=== PATIENT | female | born 1965 | race Caucasian/White ===

== ENCOUNTER 2019-11-06 16:30 | Inpatient (IN) | payer OTHER ==
[~2019-11-06] VITALS: Ht 172.7 cm; Wt 98.6 kg
--- NOTE | 2019-11-06 17:30 | NUR ---
BIB C/O SOB FOR 2 DAYS SEEN BY TODAY 02 SAT AT 88% ON RA. PT AAOX4, PLACED ON SANIPRACTIC PHYSICIAN. PLACED ON 6L OF O2, SAT 95%. DENIES CP, DIZZINESS, N/V/D. PT SEEN & EVAL'D BY DR. CABALLERO. WILL CONT TO MONITOR.
[2019-11-06 17:36] LABS: BASOPHILS # (AUTO) 0.1 /CMM (0.0-0.2); BASOPHILS % (AUTO) 0.5 % (0.0-2.0); EOSINOPHILS % (AUTO) 0.9 % (0.0-6.0); HEMATOCRIT 25 % (33-45); HEMOGLOBIN 7.6 g/dL (11.5-14.8); LYMPHOCYTES # (AUTO) 1.3 /CMM (0.8-4.8); LYMPHOCYTES % (AUTO) 10.5 % (20.0-44.0); MEAN CORPUSCULAR HGB CONC 30 g/dl (31.0-36.0); MEAN CORPUSCULAR VOLUME 88 fL (82-100); MONOCYTES # (AUTO) 1.2 /CMM (0.1-1.30); MONOCYTES % (AUTO) 9.8 % (2.0-12.0); NEUTROPHILS # (AUTO) 9.9 /CMM (1.8-8.9); NEUTROPHILS % (AUTO) 78.3 % (43.0-81.0); PLATELET COUNT (AUTO) 261 /CMM (150-450); RED BLOOD CELL COUNT(AUTO) 2.87 MIL/uL (4.0-5.2); WHITE BLOOD COUNT (AUTO) 12.7 K/uL (4.3-11.0)
[2019-11-06 17:45] LABS: CARBON DIOXIDE 30 mmol/L (21-32); CHLORIDE 100 mmol/L (98-107); CREATININE 0.8 mg/dL (0.6-1.3); GLUCOSE 133 mg/dL (74-106); POTASSIUM 3.5 mmol/L (3.5-5.1); SODIUM SERUM 138 mmol/L (136-145); UREA NITROGEN, BLOOD 12 mg/dL (7-18)
[2019-11-06 17:46] LABS: CALCIUM, SERUM 8.3 mg/dL (8.5-10.1)
[2019-11-06 17:57] LABS: ALANINE AMINOTRANSFERASE 48 U/L (12-78); ALBUMIN 2.6 g/dL (3.4-5.0); ALKALINE PHOSPHATASE 137 U/L (46-116); ASPARTATE AMINOTRANSFERASE 55 U/L (15-37); B-TYPE NATRIURETIC PEPTIDE 1559 PG/ML (0-125); BILIRUBIN,DIRECT 1.3 mg/dL (0.0-0.2); BILIRUBIN,TOTAL 2.7 mg/dL (0.2-1.0); TOTAL PROTEIN, SERUM 6.4 g/dL (6.4-8.2)
[2019-11-06] MEDS ORDERED: IOHEXOL-350 100 ML VIAL IV ONE (17:58)
[2019-11-06] MEDS ORDERED: IV NS 0.9% 250 ML IV ONE (17:58)
[2019-11-06 18:13] LABS: CREATINE KINASE, TOTAL 79 U/L (26-192); FERRITIN 45 ng/mL (8-388)
[2019-11-06 18:14] LABS: LIPASE 287 U/L (73-393)
[2019-11-06 18:15] LABS: ALCOHOL, BLOOD < 3 mg/dL (0-0)
[2019-11-06] MEDS ORDERED: PRED10TA PO (18:36)
[2019-11-06] MEDS ORDERED: FURO20TA4 PO (18:36)
[2019-11-06] MEDS ORDERED: FLUT1DIS5 IH (18:36)
[2019-11-06] MEDS ORDERED: ALBU8.5H8 IH (18:36)
[2019-11-06] MEDS ORDERED: POTA20TA83 PO (18:36)
[2019-11-06] MEDS ORDERED: ALBU2.5V38 IH (18:36)
[2019-11-06] MEDS ORDERED: IPRA0.2S9 IH (18:37)
[2019-11-06 18:55] LABS: ABG BASE EXCESS 2.4 mmol/L; ABG OXYGEN SATURATION 89.9 % (92.0-98.5); ABG PCO2 40.1 mmHg (35.0-45.0); ABG PH 7.441 (7.350-7.450); ABG PO2 62.9 mmHg (75.0-100.0); AaDO2 176.2 mmHg; COHb 1.1 % (0.5-1.5); MetHb 0.7 % (0.0-1.5); O2Hb 88.3 % (94.0-97.0); SITE, ABG Left Radial
[2019-11-06 18:58] LABS: D-DIMER 9.04 mg/L(FEU (0.17-0.50)
[2019-11-06 19:12] LABS: C-REACTIVE PROTEIN 3.1 mg/dL (0.0-0.9)
[2019-11-06] MEDS ORDERED: VANCOMYCIN 1 GM in IV D5W 250 ML IV ONE (20:00)
[2019-11-06] MEDS ORDERED: MEROPENEM 1,000 MG in IV NS 0.9% 100 ML IV ONE (20:00)
--- NOTE | 2019-11-06 20:00 | NUR ---
PT STABLE, DENIES CP, SOB, DIZZINESS, N/V @ THIS TIME. PT STS " I FEEL MUCH BETTER ". WILL CONT TO MONITOR.
--- NOTE | 2019-11-06 20:24 | NUR ---
PANEL PAGED FOR JACQUES
--- NOTE | 2019-11-06 20:45 | NUR ---
ER MD SPOKE TO JOSE ANGEL REGARDING PT ADMISSION.
--- NOTE | 2019-11-06 21:01 | NUR ---
REPORT CALLED TO [facility]. WILL TRANSPORT PT VIAL ACLS PROTOCOL.
--- NOTE | 2019-11-06 21:25 | NUR ---
SED SPECIAL EDUCATION TEACHER NOTES RECEIVED AND ADMIT A 54 Y/O FEMALE A/O X4 ABLE TO MAKE NEEDS KNOWN ,AMBULATORY ,ON O2 AT 2LITERS VIA NC SATING 92%,WITH ADMITTING DX OF PNA ,R/O COVID ,ANASARCA,LIVER CIRRHOSIS.NO SOB NO DISTRESS NOTED BUT NOTED LUNG SOUND WHEEZING ,V/S STABLE AFEBRILE ,ALL NEEDS ATTENDED TOO ,HEAD TO TOE SKIN ASSESSMENT DONE , NOTED WITH NO SKIN ISSUE SKIN INTACT ,NOTED WITH BILATERAL FEET EDEMA .ON TELE MONITOR SR 70S , DUE MEDS GIVEN ORDERED.KEPT PTS CLEAN DRY AND COMFORTABLE.PTS IS PEDING COVID 19 ,PRECAUTIONARY MEASURES OBSERVE AT ALL TIMES.
[2019-11-06] MEDS ORDERED: ALBUTEROL FS 2.5 MG/3 ML VIAL.NEB IH PRN (21:30)
[2019-11-06] MEDS ORDERED: ALBUTEROL SULFATE INH 18 GM HFA.AER.AD IH PRN (21:30)
[2019-11-06] MEDS ORDERED: ZOLPIDEM TARTRATE 5 MG TABLET PO PRN (21:30)
[2019-11-06] MEDS ORDERED: ONDANSETRON HCL/PF 4 MG/2 ML VIAL IVP PRN (21:30)
[2019-11-06] MEDS ORDERED: FLUTICASONE/SALMETEROL 1 DISK IH SCH (21:30)
[2019-11-06] MEDS ORDERED: ACETAMINOPHEN 325 MG TABLET PO PRN (21:30)
[2019-11-06] MEDS ORDERED: IPRATROPIUM NEB FS 0.5 MG/2.5 ML AMPUL.NEB IH PRN (21:30)
--- NOTE | 2019-11-06 21:30 | NUR ---
STARS COORDINATOR NOTES ADVAIR DOSE FOR 2130 HRS NOT GIVEN D/T UNAVAILABILITY TECHNICAL TRAINER MADE AWARE.
[2019-11-06 21:54] LABS: IRON, SERUM 12 ug/dl (50-175); TOTAL IRON BINDING CAPACITY 242 ug/dl (250-450)
[2019-11-06 22:20] VITALS: BP_SYST 105; BP_SYST 128; BP_DIAS 51; BP_DIAS 62
[2019-11-06] MEDS: ALBUTEROL SULFATE 8 GM HFA.AER.AD IH PRN (23:38)
[2019-11-07] VITALS: BP 105/51
[2019-11-07 04:00] VITALS: BP 105/65
[2019-11-07] MEDS ORDERED: MEROPENEM 500 MG VIAL IV ONE (04:53)
[2019-11-07] MEDS ORDERED: MEROPENEM 500 MG in IV NS 0.9% 50 ML IV SCH (05:00)
--- NOTE | 2019-11-07 05:15 | NUR ---
telephone clerk telegraph office notes pts remains in bed 0n o2 at 2 liters via nc sating 94% no sob no distress noted .all due meds given as ordered .no ase noted, will endorse to rn day shift for continuity of care.
[2019-11-07] MEDS ORDERED: FEE PK DOSING 1 MIN EA MC ONE (07:29)
[2019-11-07 07:54] LABS: BASOPHILS % (AUTO) 0.3 % (0.0-2.0); EOSINOPHILS % (AUTO) 2.2 % (0.0-6.0); HEMATOCRIT 25 % (33-45); HEMOGLOBIN 7.5 g/dL (11.5-14.8); LYMPHOCYTES # (AUTO) 1.8 /CMM (0.8-4.8); LYMPHOCYTES % (AUTO) 14.2 % (20.0-44.0); MEAN CORPUSCULAR HGB CONC 30 g/dl (31.0-36.0); MEAN CORPUSCULAR VOLUME 87 fL (82-100); MONOCYTES # (AUTO) 1.5 /CMM (0.1-1.30); MONOCYTES % (AUTO) 11.5 % (2.0-12.0); NEUTROPHILS # (AUTO) 9.2 /CMM (1.8-8.9); NEUTROPHILS % (AUTO) 71.8 % (43.0-81.0); PLATELET COUNT (AUTO) 197 /CMM (150-450); RED BLOOD CELL COUNT(AUTO) 2.89 MIL/uL (4.0-5.2); WHITE BLOOD COUNT (AUTO) 12.8 K/uL (4.3-11.0)
[2019-11-07 08:00] VITALS: BP 121/66
[2019-11-07] MEDS ORDERED: VANCOMYCIN HCL 1.25 GM in IV D5W 250 ML IV ONE (08:00)
--- NOTE | 2019-11-07 08:00 | NUR ---
NUCLEAR MEDICINE TECHNICIAN OPENING NOTES RECEIVED PT IN BED. A/A/O X4, PT IS ON TELE MONITOR SHOWING HR 80S SR, PT IS ON 2 L O2 VIA NC SATURATION 85%PT HAS SOB, CATCHING FOR BREATH, ELEVATED HOB, ADJUST O2 TO 5 LITER AND PT IS SATING 95%. PT IS ON ISOLATION TO R/O COVID 19. IV IS ON LA, PT HAS TKO 5ML/H, IV PATENT, DRESSING CLEAN AND DRY. PT STATES NO PAIN AT THE MOMENT. SAFETY MEASURES IMPLEMENTSED BED AT LOWEST POSITION, LOCKED, ALARM ON, SIDE RAILS UP X2, CALL LIGHT IN REACH. WILL CONTINUE TO MONITOR.
[2019-11-07 08:06] LABS: ALBUMIN 2.4 g/dL (3.4-5.0); BILIRUBIN,TOTAL 2.8 mg/dL (0.2-1.0); CREATININE 0.6 mg/dL (0.6-1.3); POTASSIUM 5.3 mmol/L (3.5-5.1); TOTAL PROTEIN, SERUM 6.3 g/dL (6.4-8.2)
[2019-11-07] MEDS: VANCOMYCIN HCL 1.25 GM in IV D5W 250 ML IV SCH ×2 (08:09→20:53)
[2019-11-07] MEDS ORDERED: POTASSIUM CHLORIDE 20 MEQ TAB.PRT.SR PO SCH (09:00)
[2019-11-07] MEDS ORDERED: predniSONE 10 MG TABLET PO SCH (09:00)
[2019-11-07] MEDS ORDERED: FUROSEMIDE 20 MG TABLET PO SCH (09:00)
--- NOTE | 2019-11-07 10:00 | NUR ---
RN NOTES SPOKE TO DR STEVENSON REGARDING PT'S CONDITION. MD MADE AWARE OF PT'S COMPLAINS OF SOB ," FEELING MUCH WORST THAN YESTERDAY". MD ACKNOWLEDGED INFORMATION .
[2019-11-07] MEDS: ALBUTEROL SULFATE 8 GM HFA.AER.AD IH PRN (10:15)
[2019-11-07] MEDS: FLUTICASONE/VILANTEROL 1 EACH BLST.W.DEV IH SCH (10:16)
[2019-11-07] MEDS ORDERED: ENOXAPARIN SODIUM 40 MG/0.4 ML DISP.SYRIN SQ SCH (10:30)
[2019-11-07] MEDS ORDERED: HYDROXYCHLOROQUINE 200 MG TABLET PO SCH (10:30)
[2019-11-07] MEDS ORDERED: ENOXAPARIN SODIUM 100 MG/ML DISP.SYRIN SQ SCH (11:00)
--- NOTE | 2019-11-07 11:08 | NUR ---
RN NOTE: ATROVENT ORDER DISCONTINUED PER DR. AGAPITO MUNGUIA.
[2019-11-07] MEDS ORDERED: ENOXAPARIN SODIUM 60 MG/0.6 ML DISP.SYRIN SQ ONE (11:30)
[2019-11-07 11:42] LABS: MAGNESIUM 2.1 mg/dL (1.8-2.4); PHOSPHORUS 2.9 mg/dL (2.5-4.9)
[2019-11-07] MEDS: methylPREDNISolone SOD SUCC 40 MG/ML VIAL IV SCH (11:42)
[2019-11-07] MEDS: ZINC SULFATE 220 MG CAPSULE PO SCH (11:42)
[2019-11-07] MEDS: ASCORBIC ACID 500 MG TABLET PO SCH (11:42)
[2019-11-07] MEDS: HYDROXYCHLOROQUINE 200 MG TABLET PO SCH ×2 (11:43→20:54)
[2019-11-07 11:52] LABS: C-REACTIVE PROTEIN 3.3 mg/dL (0.0-0.9); THYROID STIMULATING HORMONE 2.139 uIU/mL (0.358-3.74)
[2019-11-07 12:00] VITALS: BP 110/51
[2019-11-07] MEDS: MEROPENEM 1 G in IV NS 0.9% 100 ML IV SCH ×2 (13:16→22:08)
[2019-11-07] MEDS: SOD FERRIC GLUC 125 MG in IV NS 0.9% 100 ML IV SCH (14:11)
[2019-11-07 16:00] VITALS: BP 114/63
--- NOTE | 2019-11-07 18:00 | NUR ---
RN CLOSING NOTES PT IS RESTING IN THE BED. NO S/S OF DISTRESS PRESENT, PT HAS UNLABORED BREATHING, ON 5 L O2 VIA NC SATING 95.VS WNL NO ACUTE CHANGE NOTED FOR REMAINDER OF THE SHIFT.SAFETY MEASURES IMPLEMENTED. CALL LIGHT WITHIN REACH, BED AT LOWEST POSITION,SIDE RAILES X2 UP. WILL ENDORSE TO INCOMING SHIFT FOR CONTINUITY OF CARE.
[2019-11-07 20:00] VITALS: BP 124/68
[2019-11-07] MEDS ORDERED: SODIUM POLYSTYRENE SULFONATE 15 G/60 ML BOTTLE PO ONE (20:00)
--- NOTE | 2019-11-07 20:00 | NUR ---
FOILING MACHINE ADJUSTER NOTES RECEIVED IN BED AWAKE AND COMFORTABLE . A/O X4 ABLE TO MAKE NEEDS KNOWN ,AMBULATORY ,ON O2 AT 5 LITERS VIA NC SATING 94%.NO SOB NO DISTRESS NOTED BUT NOTED LUNG SOUND WHEEZING ,V/S STABLE AFEBRILE. ON LEFT HAND g22 PATENT AND INTACT ,ALL NEEDS ATTENDED TOO , NOTED WITH NO SKIN ISSUE SKIN INTACT ,NOTED WITH BILATERAL FET OFFLOADED TO PILLOW .ON TELE MONITOR SR 90S , DUE MEDS GIVEN ORDERED.PTS ON PLAQUENIL NO ASE NOTED .KEPT PTS CLEAN DRY AND COMFORTABLE.PTS IS PEDING COVID 19 ,PRECAUTIONARY MEASURES OBSERVE AT ALL TIMES.KAYEXALATE 30 GRAMS GIVEN VIA PO ORDERED FOR ELEVATED POTASSIUM LEVEL.WILL CONTINUE TO MONITOR PTS.
[2019-11-07] MEDS: ENOXAPARIN SODIUM 100 MG/ML DISP.SYRIN SQ SCH (20:55)
[2019-11-08] VITALS (7 sets, daily range): BP systolic 110–128; BP diastolic 54–81
[2019-11-08] MEDS: MEROPENEM 1 G in IV NS 0.9% 100 ML IV SCH ×3 (04:10→21:21)
--- NOTE | 2019-11-08 06:10 | NUR ---
telegraph inspector notes pts remain in bed awake and responsive had 3 episode of bowel moment small amt , v/as stable pts remains on 5liters of 02 via nc sating 94 % all due meds given as ordered all needs attended too .call light within reach will endorse to rn day shift for continuity of care .endorse to collect stool specimen.
--- NOTE | 2019-11-08 07:01 | NUR ---
television specialist notes stool ob collected and sent to lab pls follow up result.
--- NOTE | 2019-11-08 07:25 | NUR ---
MANAGEMENT SME OPENING NOTE Received patient asleep in bed on NC 5L. Mild increased effort in breathing noted. O2 sat at 92%. Informed patient to do breathing exercises. Patient is AO x4. Sinus rhythm. Patient has R Hand and L hand preipheral IV. Safety measures reinforced. Call light within reach. Bed locked and on lowest position. Will cont to monitor.
[2019-11-08 07:42] LABS: BASOPHILS # (AUTO) 0.1 /CMM (0.0-0.2); BASOPHILS % (AUTO) 0.7 % (0.0-2.0); EOSINOPHILS % (AUTO) 0.1 % (0.0-6.0); HEMATOCRIT 24 % (33-45); HEMOGLOBIN 7.4 g/dL (11.5-14.8); LYMPHOCYTES # (AUTO) 0.9 /CMM (0.8-4.8); LYMPHOCYTES % (AUTO) 7.7 % (20.0-44.0); MEAN CORPUSCULAR HGB CONC 31 g/dl (31.0-36.0); MEAN CORPUSCULAR VOLUME 87 fL (82-100); MONOCYTES % (AUTO) 8.3 % (2.0-12.0); NEUTROPHILS # (AUTO) 10.1 /CMM (1.8-8.9); NEUTROPHILS % (AUTO) 83.2 % (43.0-81.0); PLATELET COUNT (AUTO) 260 /CMM (150-450); RED BLOOD CELL COUNT(AUTO) 2.79 MIL/uL (4.0-5.2); WHITE BLOOD COUNT (AUTO) 12.1 K/uL (4.3-11.0)
[2019-11-08 07:57] LABS: ALBUMIN 2.5 g/dL (3.4-5.0); BILIRUBIN,TOTAL 2.6 mg/dL (0.2-1.0); CALCIUM, SERUM 8.1 mg/dL (8.5-10.1); CREATININE 0.7 mg/dL (0.6-1.3); MAGNESIUM 2.2 mg/dL (1.8-2.4); PHOSPHORUS 2.9 mg/dL (2.5-4.9); POTASSIUM 3.8 mmol/L (3.5-5.1); TOTAL PROTEIN, SERUM 6.3 g/dL (6.4-8.2)
[2019-11-08 08:06] LABS: C-REACTIVE PROTEIN 3.1 mg/dL (0.0-0.9)
[2019-11-08] MEDS: VANCOMYCIN HCL 1.25 GM in IV D5W 250 ML IV SCH (08:29)
[2019-11-08] MEDS: CHOLECALCIFEROL 1,000 UNIT TABLET (VIT D3) PO SCH (08:34)
[2019-11-08] MEDS: methylPREDNISolone SOD SUCC 40 MG/ML VIAL IV SCH (08:34)
[2019-11-08] MEDS: ZINC SULFATE 220 MG CAPSULE PO SCH (08:35)
[2019-11-08] MEDS: HYDROXYCHLOROQUINE 200 MG TABLET PO SCH ×2 (08:35→17:31)
[2019-11-08] MEDS: ASCORBIC ACID 500 MG TABLET PO SCH (08:35)
[2019-11-08] MEDS: ENOXAPARIN SODIUM 100 MG/ML DISP.SYRIN SQ SCH ×2 (08:36→21:34)
[2019-11-08] MEDS: FLUTICASONE/VILANTEROL 1 EACH BLST.W.DEV IH SCH (08:36)
[2019-11-08 08:39] LABS: OCCULT BLOOD STOOL POSITIVE (NEGATIVE)
[2019-11-08 08:46] LABS: ABG BASE EXCESS 5.9 mmol/L; ABG OXYGEN SATURATION 94.9 % (92.0-98.5); ABG PCO2 42.6 mmHg (35.0-45.0); ABG PH 7.468 (7.350-7.450); ABG PO2 77.7 mmHg (75.0-100.0); AaDO2 158.5 mmHg; COHb 1.1 % (0.5-1.5); MetHb 0.9 % (0.0-1.5); SITE, ABG Right Radial; VENT MODE, BG NC 5 L
[2019-11-08 08:47] LABS: D-DIMER 5.68 mg/L(FEU (0.17-0.50)
--- NOTE | 2019-11-08 09:45 | NUR ---
COLLECTIONS REPRESENTATIVE NOTE Gave report to Terese. Patient will be transferred to room 306-1.
--- NOTE | 2019-11-08 10:00 | NUR ---
EBD TEACHER NOTE Patient was transferred via wheelchair with acute care certified nursing assistant along with belongings and IV meds. Tolerated well. Gave report to Terese MADDOX.
--- NOTE | 2019-11-08 11:00 | NUR ---
RECEIVED PT RECEIVED PT FROM MONICA MADDOX. COVID +. PT WAS IN 3 WEST THEN CAME BACK TO [facility]/COVID UNIT, BECAUSE DR. STEVENSON WANTS TO CONTINUE WITH ISOLATION PRECAUTIONS UNTIL COVID IS RULED OUT. NO CARDIAC OR RESPIRATOPRY DISTRESS NOTED. NO COMPLAINTS OF PAIN OR DISCOMFORT AT THIS TIME. NO SOB NOTED. PT IS AFEBRILE WITH TEMP NOTED AT 98.2. PT DOES HAVE DRY COUGH, BUT DENIES ANY BODY OR MUSCLE ACHES. PT BROUGHT BACK TO ROOM 102. IN STABLE CONDITION. ON 4L OF O2 SATURATING AT 96%. WILL CONTINUE TO MONITOR.
--- NOTE | 2019-11-08 11:16 | NUR ---
CAREER COORDINATOR NOTES PT TRANSFERRED BACK DOWN TO RM 102 VIA WHEELCHAIR IN MEDICALLY STABLE CONDITION. ENDORSED TO SOON, CHARGE NURSE. ALL BELONGINGS SENT WITH PT.
--- NOTE | 2019-11-08 12:00 | NUR ---
REPOT TO DR. MAGDY CURRAN CALLED REGARDING PT, NOTIFIED MD THAT PT HAS NOT HAD ANY BOWEL MOVEMENTS THIS SHIFT YET/AM. HOWEVER, ALSO INFORMED MD THAT PTS STOOL FOR OB LAB RESULTS CAME BACK POSITIVE. MD IS AWARE. HOWEVER PER , NOTHING NEEDS TO BE DONE FOR NOW STINCE PT'S H AND H ARE STABLE AND IF NOT OVERT ACTIVE GI BLEED. ASKED MD IF NEED TO ODER PROTONIX, PER , ITS OKAY. NO NEED FOR NOW. PER DR. CURRAN, OKAY TO CONTINUE TO LET THE PT EAT, CONTINUE WITH IV IRON INFUSION, HOLD ANTICOAGULANTS AND IF NEEDED HE WILL THINK ABOUT TRANSFUSING PRBC TO KEEP HGB >7. WILL CONTINUE TO MONITOR PT.
[2019-11-08] MEDS: SOD FERRIC GLUC 125 MG in IV NS 0.9% 100 ML IV SCH (14:16)
--- NOTE | 2019-11-08 18:08 | NUR ---
TLE RN CLOSING NOTES PT IN BED, ASLEEP BUT AROUSABLE. PT AOX4. PLEASANT AND COOPERATIVE. NO CARDIAC OR RESPIRATORY DISTRESS NOTED. NO COMPLAINTS OF PAIN OR DISCOMFORT. PT AFEBRILE THROUGHOUT THE SHIFT. NO SOB NOTED. BREATHING EVEN AND UNLABORED. SATURATING WELL AT 98% ON 4L OF O2 VIA NASAL CANULLA. ON TELE OFFSET PLATE MAKER SHOWING NSR WITH HR OF 80S. PT IS AMBULATORY, ABLE TO AMBULATE TO THE BATHROOM WITH STEADY GAIT. IV ACCESS NOTED ON L HAND G20. INTACT AND PATENT AND FLUSHING WELL. NO S/S OF INFECTION OR INFILTRATION NOTED. PT WAS SWABBED THIS AM FOR COVID TESTING. STILL PENDING FOR RESULTS. SAFETY PRECAUTIONS IN PLACE. BED LOCKED AND IN LOW POSITION. SIDE RAILS UP X2. CALL LIGHT WITHIN REACH. WILL ENDORSE TO NEXT SHIFT.
[2019-11-09] VITALS: BP 127/68
[2019-11-09 04:00] VITALS: BP 127/68
[2019-11-09] MEDS: MEROPENEM 1 G in IV NS 0.9% 100 ML IV SCH ×3 (04:40→20:21)
--- NOTE | 2019-11-09 06:17 | NUR ---
rn notes resting comfortably in bed, easily arousable. alert and oriented. verbally able to communicate needs. no complaint of pain or discomfort. on 4 lpm 02 via nasal cannula, well tolerated. no significant changed of condition. needs attended. kept clean and dry. will endorse to next shift for continuity of care
[2019-11-09 08:00] VITALS: BP 113/65
[2019-11-09 08:02] LABS: BASOPHILS # (AUTO) 0.1 /CMM (0.0-0.2); BASOPHILS % (AUTO) 0.6 % (0.0-2.0); HEMATOCRIT 24 % (33-45); HEMOGLOBIN 7.6 g/dL (11.5-14.8); LYMPHOCYTES % (AUTO) 7.2 % (20.0-44.0); MEAN CORPUSCULAR HGB CONC 32 g/dl (31.0-36.0); MEAN CORPUSCULAR VOLUME 87 fL (82-100); MONOCYTES # (AUTO) 1.2 /CMM (0.1-1.30); MONOCYTES % (AUTO) 8.7 % (2.0-12.0); NEUTROPHILS # (AUTO) 11.5 /CMM (1.8-8.9); NEUTROPHILS % (AUTO) 83.5 % (43.0-81.0); PLATELET COUNT (AUTO) 253 /CMM (150-450); RED BLOOD CELL COUNT(AUTO) 2.79 MIL/uL (4.0-5.2); WHITE BLOOD COUNT (AUTO) 13.8 K/uL (4.3-11.0)
--- NOTE | 2019-11-09 08:05 | NUR ---
RN OPENING NOTE Patient is resting in bed, A/O x4, showing no signs of acute distress, saturating 100% on 4L NC. Patient has no complaints of pain at this time. IV line in the left hand #22g is running TKO, right hand #22g is clean and intact. Bed is in lowest position, side rails x3 in upright position call light is within reach, fall safety and aspiration precautions enforced. Will continue with plan of care.
[2019-11-09 08:07] LABS: CREATININE 0.7 mg/dL (0.6-1.3); POTASSIUM 3.4 mmol/L (3.5-5.1)
[2019-11-09] MEDS: FLUTICASONE/VILANTEROL 1 EACH BLST.W.DEV IH SCH (08:20)
[2019-11-09] MEDS: methylPREDNISolone SOD SUCC 40 MG/ML VIAL IV SCH (08:20)
[2019-11-09] MEDS: ZINC SULFATE 220 MG CAPSULE PO SCH (08:21)
[2019-11-09] MEDS: ASCORBIC ACID 500 MG TABLET PO SCH (08:21)
[2019-11-09] MEDS: CHOLECALCIFEROL 1,000 UNIT TABLET (VIT D3) PO SCH (08:21)
[2019-11-09] MEDS: HYDROXYCHLOROQUINE 200 MG TABLET PO SCH ×2 (08:21→16:06)
[2019-11-09] MEDS: ENOXAPARIN SODIUM 100 MG/ML DISP.SYRIN SQ SCH ×2 (08:22→20:21)
[2019-11-09] MEDS ORDERED: POTASSIUM CHLORIDE 20 MEQ TAB.PRT.SR PO SCH (10:00)
--- NOTE | 2019-11-09 11:05 | NUR ---
COVID STATUS STILL PENDING.
[2019-11-09 11:27] LABS: C-REACTIVE PROTEIN 2.2 mg/dL (0.0-0.9)
[2019-11-09 12:00] VITALS: BP_SYST 119; BP_SYST 121; BP_DIAS 56; BP_DIAS 63
--- NOTE | 2019-11-09 12:00 | NUR ---
RN NOTE Patient remains stable, saturating 100% on 4L NC. COVID swab still pending. Will continue to monitor.
[2019-11-09] MEDS: SOD FERRIC GLUC 125 MG in IV NS 0.9% 100 ML IV SCH (14:50)
[2019-11-09 16:00] VITALS: BP_SYST 148; BP_SYST 99; BP_DIAS 60; BP_DIAS 68
--- NOTE | 2019-11-09 17:11 | NUR ---
FF. UP COVID RESULT STILL PENDING PER LAB.
--- NOTE | 2019-11-09 18:17 | NUR ---
RN CLOSING NOTE Patient is resting in bed, A/O x4, showing no signs of acute distress, saturating 100% on 4L NC. Patient has no complaints of pain at this time. IV right hand #22g is clean and intact running TKO. All patient needs met, all due medications given. Bed is in lowest position, side rails x3 in upright position call light is within reach, fall safety and aspiration precautions enforced. Will endorse to night assistant.
[2019-11-09 20:00] VITALS: BP 101/54
--- NOTE | 2019-11-09 20:00 | NUR ---
RN NOTES RECEIVED PT. AWAKE ON BED, A/OX4, AMBULATORY, SR ON TELE MONITOR HR-77, DENIES PAIN, NO SOB, CALL LIGHT WITHIN REACH, [id number], CONTINUE TO MONITOR
[2019-11-10] VITALS: BP 119/65
[2019-11-10 04:00] VITALS: BP 106/55
[2019-11-10] MEDS: MEROPENEM 1 G in IV NS 0.9% 100 ML IV SCH ×2 (04:14→13:29)
[2019-11-10 06:24] LABS: BASOPHILS # (AUTO) 0.2 /CMM (0.0-0.2); BASOPHILS % (AUTO) 1.2 % (0.0-2.0); HEMATOCRIT 26 % (33-45); HEMOGLOBIN 7.9 g/dL (11.5-14.8); LYMPHOCYTES # (AUTO) 0.7 /CMM (0.8-4.8); LYMPHOCYTES % (AUTO) 4.2 % (20.0-44.0); MEAN CORPUSCULAR HGB CONC 31 g/dl (31.0-36.0); MEAN CORPUSCULAR VOLUME 87 fL (82-100); MONOCYTES # (AUTO) 1.3 /CMM (0.1-1.30); MONOCYTES % (AUTO) 7.8 % (2.0-12.0); NEUTROPHILS # (AUTO) 14.5 /CMM (1.8-8.9); NEUTROPHILS % (AUTO) 86.8 % (43.0-81.0); PLATELET COUNT (AUTO) 267 /CMM (150-450); RED BLOOD CELL COUNT(AUTO) 2.97 MIL/uL (4.0-5.2); WHITE BLOOD COUNT (AUTO) 16.7 K/uL (4.3-11.0)
--- NOTE | 2019-11-10 06:37 | NUR ---
RN NOTES AWAKE, DENIES PAIN, NO SOB, MORNING CARE RENDERED, CALL LIGHT WITHIN REACH, SIDERAILSUPX2, PT. NEEDS ATTENDED
[2019-11-10 06:40] LABS: CALCIUM, SERUM 8.5 mg/dL (8.5-10.1); CREATININE 0.8 mg/dL (0.6-1.3); MAGNESIUM 2.4 mg/dL (1.8-2.4); POTASSIUM 3.7 mmol/L (3.5-5.1)
--- NOTE | 2019-11-10 07:10 | NUR ---
RN opening note: Received patient in bed. Awake, alert and oriented x4. Able to make needs known. Tele monitor showing sinus rhythm. Isolation precaution in place to R/O covid-19. IV sites clean, dry, patent and intact. On cont. o2 via NC @4lpm and being tolerated well, saturation >92%. No SOB and not in respiratory distress. No pain reported. Patient is independent with ambulation. Call light in reach. Bed locked, low and at semi-dunham's position. Side rails up x3. Safety ensured and observed. Will continue to monitor.
[2019-11-10 07:23] LABS: D-DIMER 4.42 mg/L(FEU (0.17-0.50)
[2019-11-10 08:00] VITALS: BP 116/72
[2019-11-10] MEDS: FLUTICASONE/VILANTEROL 1 EACH BLST.W.DEV IH SCH (09:00)
[2019-11-10] MEDS: ZINC SULFATE 220 MG CAPSULE PO SCH (09:31)
[2019-11-10] MEDS: methylPREDNISolone SOD SUCC 40 MG/ML VIAL IV SCH (09:31)
[2019-11-10] MEDS: CHOLECALCIFEROL 1,000 UNIT TABLET (VIT D3) PO SCH (09:31)
[2019-11-10] MEDS: HYDROXYCHLOROQUINE 200 MG TABLET PO SCH ×2 (09:31→16:17)
[2019-11-10] MEDS: ASCORBIC ACID 500 MG TABLET PO SCH (09:32)
[2019-11-10] MEDS: ENOXAPARIN SODIUM 100 MG/ML DISP.SYRIN SQ SCH ×2 (10:08→20:38)
[2019-11-10 12:00] VITALS: BP 122/67
[2019-11-10] MEDS: SOD FERRIC GLUC 125 MG in IV NS 0.9% 100 ML IV SCH (14:45)
[2019-11-10 15:28] LABS: C-REACTIVE PROTEIN 2.2 mg/dL (0.0-0.9)
[2019-11-10 16:00] VITALS: BP 115/58
--- NOTE | 2019-11-10 16:00 | NUR ---
RN note: Report given to VARSHA Barrett for LORE.
--- NOTE | 2019-11-10 18:25 | NUR ---
RN CLOSING NOTE PT. IN BED. NO ACUTE DISTRESS NOTED. PT. A&OX4. PT. ON 4L O2 VIA NC, SATURATING WELL AT >92%. PT. ON TELE MONITOR- SR NOTED WITH HR IN 70S. PT. HAS R WRIST IV ACCESS #22, INTACT, PATENT, FLUSHED WELL. PT. SAFETY MAINTAINED (BED LOWERED, BED LOCKED, CALL LIGHT WITHIN REACH). WILL ENDORSE PLAN OF CARE TO ONCOMING NURSE.
--- NOTE | 2019-11-10 19:27 | NUR ---
RN NOTE PT. COMPLAINED ABOUT IV SITE LEAKING. UPON ASSESSMENT, FOUND IV SITE INFILTRATED. PITTING EDEMA +2 NOTED. PAIN NOTED. IV SITE DISCONTINUED. NO INFLAMMATION NOTED. CATHETER WAS INTACT, SITE WAS NOT WARM, NO REDNESS. TRIED TO RESTART IV, BUT PT. REFUSED. RISKS AND BENEFITS OF IV NON-ADMINISTRATION EXPLAINED TO PT. NICHOL ALVAREZ DNP INFORMED OF THE SITUATION. ACKNOWLEDGED INFORMATION. WAS INFORMED TO F/U WITH ELIZABETH BRUCE FOR POSSIBLE CONVERSION OF IV MERREM TO PO MERREM. AWAITING RESPONSE. PT. MONITORED FOR ANY OTHER AEs WITH REGARDS TO INFILTRATION. ENDORSED TO SHOP HAND NURSE FOR CONTINUITY OF CARE.
--- NOTE | 2019-11-10 19:54 | NUR ---
RN NOTE: SPOKE TO ELIZABETH BRUCE ABOUT SITUATION. ACKNOWLEDGED INFORMATION AND ORDERED TO D/C MERREM IV AND START LEVAQUIN PHARMACY TO DOSE. SPOKE TO AFTER HOURS PHARMACIST ABOUT ORDER INPUT AND WAS GUIDED TO PUT LEVAQUIN 750MG PO QDAILY AND PUT PHARMACY TO DOSE IN THE COMMMENT THE ORDER. NOTED AND CARRIED OUT. Addendum: 11/10/19 at 1957 by DIANE PRESCOTT RN PO LEVAQUIN
[2019-11-10 20:00] VITALS: BP 121/76
[2019-11-10] MEDS ORDERED: LEVOFLOXACIN (750 MG) 750 MG TABLET PO ONE (20:00)
[2019-11-10] MEDS: DOXYCYCLINE HYCLATE (100 MG) 100 MG TABLET PO SCH (20:38)
[2019-11-10] MEDS ORDERED: LEVOFLOXACIN (250MG) 250 MG TABLET ONE (21:00)
[2019-11-11] VITALS: BP 101/54
[2019-11-11 04:00] VITALS: BP 104/62
--- NOTE | 2019-11-11 05:55 | NUR ---
rn notes in bed, sleeping comfortably with no distress noted. on 4lpm 02 via nasal cannula tolerating well. no complaint of pain or discomfort. no significant change of condition. waiting for results of covid-19. kept clean and dry. will endorse to next shift for continuity of care
[2019-11-11 07:20] LABS: CALCIUM, SERUM 8.3 mg/dL (8.5-10.1); CREATININE 0.7 mg/dL (0.6-1.3); MAGNESIUM 2.3 mg/dL (1.8-2.4); PHOSPHORUS 3.2 mg/dL (2.5-4.9); POTASSIUM 3.8 mmol/L (3.5-5.1)
--- NOTE | 2019-11-11 07:30 | NUR ---
RN OPENING NOTE: RECEIVED PATIENT IN BED THIS MORNING. PATIENT IS ALERT AND ORIENTED X4, RESPONDS APPROPRIATELY. ON 4L/MIN O2 VIA NC, NO SIGNS OF RESPIRATORY DISTRESS NOTED. NO SIGNS OF ACUTE DISTRESS NOTED. ON TELE MONITOR, SR IN THE 70S. NO IV SITE. SAFETY MEASURES IMPLEMENTED, BED IN LOWEST POSITION, LOCKED, SIDE RAILS UP, CALL LIGHT WITHIN REACH. WILL CONTINUE TO MONITOR PATIENT FOR CHANGES.
[2019-11-11 08:00] VITALS: BP_SYST 109; BP_SYST 112; BP_DIAS 54; BP_DIAS 67
[2019-11-11 08:10] LABS: BASOPHILS # (AUTO) 0.1 /CMM (0.0-0.2); BASOPHILS % (AUTO) 0.4 % (0.0-2.0); HEMATOCRIT 26 % (33-45); HEMOGLOBIN 7.7 g/dL (11.5-14.8); LYMPHOCYTES # (AUTO) 1.2 /CMM (0.8-4.8); LYMPHOCYTES % (AUTO) 8.9 % (20.0-44.0); MEAN CORPUSCULAR HGB CONC 30 g/dl (31.0-36.0); MEAN CORPUSCULAR VOLUME 88 fL (82-100); MONOCYTES # (AUTO) 1.1 /CMM (0.1-1.30); MONOCYTES % (AUTO) 8.3 % (2.0-12.0); NEUTROPHILS # (AUTO) 10.9 /CMM (1.8-8.9); NEUTROPHILS % (AUTO) 82.4 % (43.0-81.0); PLATELET COUNT (AUTO) 209 /CMM (150-450); RED BLOOD CELL COUNT(AUTO) 2.91 MIL/uL (4.0-5.2); WHITE BLOOD COUNT (AUTO) 13.2 K/uL (4.3-11.0)
[2019-11-11] MEDS: ZINC SULFATE 220 MG CAPSULE PO SCH (08:10)
[2019-11-11] MEDS: CHOLECALCIFEROL 1,000 UNIT TABLET (VIT D3) PO SCH (08:10)
[2019-11-11] MEDS: ASCORBIC ACID 500 MG TABLET PO SCH (08:10)
[2019-11-11] MEDS: HYDROXYCHLOROQUINE 200 MG TABLET PO SCH ×2 (08:10→16:47)
[2019-11-11] MEDS: DOXYCYCLINE HYCLATE (100 MG) 100 MG TABLET PO SCH ×2 (08:10→21:22)
[2019-11-11] MEDS: FLUTICASONE/VILANTEROL 1 EACH BLST.W.DEV IH SCH (08:11)
[2019-11-11] MEDS: ENOXAPARIN SODIUM 100 MG/ML DISP.SYRIN SQ SCH (08:13)
[2019-11-11 10:12] LABS: BAND % (MANUAL) 2 % (0.0-5.0); LYMPHOCYTES % (MANUAL) 10 % (16-48); METAMYELOCYTES % 1 % (0-0); MONOCYTES % (MANUAL) 7 % (0-11.0); MYELOCYTES % 1 % (0-0); NEUTROPHILS % (MANUAL) 79 (42-76)
[2019-11-11 12:00] VITALS: BP 110/68
[2019-11-11 16:00] VITALS: BP 115/55
[2019-11-11] MEDS: SOD FERRIC GLUC 125 MG in IV NS 0.9% 100 ML IV SCH (16:28)
--- NOTE | 2019-11-11 18:55 | NUR ---
RN CLOSING NOTE: PATIENT REMAINS IN BED. NO SIGNS OF RESPIRATORY/ ACUTE DISTRESS NOTED. TELE MONITOR SR IN THE 70S WITH OCCASIONAL PVCS. SAFETY MEASURES IMPLEMENTED, BED IN LOWEST POSITION, LOCKED, SIDE RAILS UP X2, CALL LIGHT WITHIN REACH. WILL ENDORSE TO ONCOMING SHIFT RN FOR CONTINUITY OF CARE.
--- NOTE | 2019-11-11 19:10 | NUR ---
MULTICULTURAL MANAGER NOTES RECEIVED PT IN BED AWAKE AND ABLE TO MAKE NEEDS KNOWN. PT A/O X3. RESPIRATIONS EVEN AND UNLABORED WITH NO S/S OF ACUTE DISTRESS OR SOB NOTED. PT NOTED ON 4L/MIN O2 VIA NC. PT ON TELE MONITOR, SR IN THE 70S. PT NOTED WITH ANU MIDLINE PATENT AND INTACT AND SL. NO COMPLAINTS OF PAIN AT THIS TIME. SAFETY MEASURES IN PLACE WITH BED IN LOWEST LOCKED POSITION WITH SIDE RAILS UP X2. CALL LIGHT WITHIN REACH. WILL CONTINUE TO MONITOR.
[2019-11-11 20:00] VITALS: BP 111/57
[2019-11-11] MEDS: LEVOFLOXACIN (250MG) 250 MG TABLET PO SCH (20:24)
[2019-11-12] VITALS: BP 120/63
[2019-11-12 04:00] VITALS: BP 105/57
[2019-11-12 06:57] LABS: BASOPHILS % (AUTO) 0.2 % (0.0-2.0); EOSINOPHILS % (AUTO) 1.5 % (0.0-6.0); HEMATOCRIT 25 % (33-45); HEMOGLOBIN 7.8 g/dL (11.5-14.8); LYMPHOCYTES % (AUTO) 10.2 % (20.0-44.0); MEAN CORPUSCULAR HGB CONC 31 g/dl (31.0-36.0); MEAN CORPUSCULAR VOLUME 88 fL (82-100); NEUTROPHILS # (AUTO) 7.8 /CMM (1.8-8.9); NEUTROPHILS % (AUTO) 78.1 % (43.0-81.0); PLATELET COUNT (AUTO) 193 /CMM (150-450); RED BLOOD CELL COUNT(AUTO) 2.87 MIL/uL (4.0-5.2)
[2019-11-12 07:19] LABS: CALCIUM, SERUM 8.1 mg/dL (8.5-10.1); CREATININE 0.6 mg/dL (0.6-1.3); PHOSPHORUS 3.7 mg/dL (2.5-4.9); POTASSIUM 3.7 mmol/L (3.5-5.1)
--- NOTE | 2019-11-12 07:30 | NUR ---
CORPORATE SECRETARY NOTES PT IN BED, AWAKE, ALERT AND ORIENTED, VERBALLY RESPONSIVE, CALL LIGHT WITHIN REACH, NO COMPLAINT OF PAIN, STATED THAT SHE FEELS BETTER TODAY, NO SHORTNESS OF BREATH, KEPT WARM AND COMFORTABLE IN BED.
--- NOTE | 2019-11-12 07:40 | NUR ---
MILITARY PAY TECHNICIAN NOTES PT IN BED AWAKE AND ABLE TO MAKE NEEDS KNOWN. PT A/O X3. RESPIRATIONS EVEN AND UNLABORED WITH NO S/S OF ACUTE DISTRESS OR SOB NOTED THROUGHOUT SHIFT. PT NOTED ON 4L/MIN O2 VIA NC. PT ON TELE MONITOR, SR. PT NOTED WITH ANU MIDLINE PATENT AND INTACT AND SL. NO COMPLAINTS OF PAIN AT THIS TIME. SAFETY MEASURES IN PLACE WITH BED IN LOWEST LOCKED POSITION WITH SIDE RAILS UP X2. CALL LIGHT WITHIN REACH. WILL ENDORSE TO ONCOMING NURSE FOR LORE.
[2019-11-12 08:00] VITALS: BP 113/53
[2019-11-12] MEDS: FLUTICASONE/VILANTEROL 1 EACH BLST.W.DEV IH SCH (08:30)
[2019-11-12] MEDS: CHOLECALCIFEROL 1,000 UNIT TABLET (VIT D3) PO SCH (08:30)
[2019-11-12] MEDS: ASCORBIC ACID 500 MG TABLET PO SCH (08:30)
[2019-11-12] MEDS: DOXYCYCLINE HYCLATE (100 MG) 100 MG TABLET PO SCH ×2 (08:30→20:05)
[2019-11-12] MEDS: ZINC SULFATE 220 MG CAPSULE PO SCH (08:30)
[2019-11-12 12:00] VITALS: BP 128/60
--- NOTE | 2019-11-12 13:00 | NUR ---
DRUG WORKER NOTES PT IN BED, AWAKE, ALERT, SPEAKING ON HER PHONE, NO COMPLAINT AT THIS TIME, NOT IN PAIN OR DISTRESS, CALL LIGHT KEPT WITHIN REACH.
--- NOTE | 2019-11-12 15:04 | NUR ---
CHARGE MASTER ANALYST NOTES PT SEEN AND EXAMINED BY DR. LUIS, PLAN OF CARE DISCUSSED WITH PT, VERBALIZED UNDERSTANDING.
[2019-11-12 16:00] VITALS: BP 116/55
--- NOTE | 2019-11-12 18:24 | NUR ---
PRECISION FILER HAND NOTES PT IN BED, AWAKE, ALERT AND ORIENTED, DENIES PAIN, NOT IN DISTRESS, WATCHING TV, CALL LIGHT WITHIN REACH, AMBULATES TO THE BATHROOM WITH SLOW AND STEADY GAIT, NEEDS ATTENDED.
--- NOTE | 2019-11-12 19:10 | NUR ---
RN NOTE RECEIVED PT IN BED A/O X 3, DENIES ANY PAIN AT THIS TIME, PT IN NO DISTRESS ON O2 VIA NC 4 L/MIN, ANU MIDLINE PATENT AND INTACT FLUSHING WELL. PT SITTING UP WATCHING TV, SAFETY MEASURE IN PLACE CALL LIGHT WITHIN REACH. WILL CONTINUE TO MONITOR PT.
[2019-11-12 20:00] VITALS: BP 93/81
[2019-11-12] MEDS: LEVOFLOXACIN (250MG) 250 MG TABLET PO SCH (20:06)
--- NOTE | 2019-11-12 23:20 | NUR ---
RN NOTES, SUMMONED TO PATIENT ROOM WITH PRIMARY NURSE DUE TO SMALL BOIL LIKE ON PATIENT LEFT UPPER SHOULDER, CLEAN AND APPLIED PRESSURE TO SITE AND DRESSED WITH KERLIX, DRESSING REINFORCED AND COVER WITH TAPE, PICTURE TAKEN AND IN CHART, NO ADDITIONAL SIGNS AND SYMPTOMS, PATIENT DENIES ANY DIZZINESS OR DISCOMFORT, WILL CONTINUE TO MONITOR CLOSELY.
--- NOTE | 2019-11-12 23:20 | NUR ---
RN NOTE PT STATES, " WHILE I WAS IN THE RESTROOM, I FELT AND HEARD A POP IN MY LEFT SHOULDER. THERE WAS YELLOW, BROWNISH LIQUID DRIPPING DOWN MY ARM. THEN BLOOD STARTED TO COME OUT." PRESSURE DRESSING APPLIED TO LEFT SHOULDER, SMALL BLISTER LIKE OOZING BLOOD. ELEVATED LEFT ARM WITH 2 PILLOWS. PT DOES NOT C/O ANY PAIN TO ARM. PICTURE TAKEN, MOTORCYCLE DESIGNER MADE AWARE
[2019-11-13] VITALS: BP 114/72
[2019-11-13] MEDS ORDERED: GELATIN SPONGE,ABSORBABLE 1 SPONGE SPONGE TP ONE ×3 (00:47→02:06)
--- NOTE | 2019-11-13 01:28 | NUR ---
RN NOTE PT IS STILL HAVING BLEEDING FROM LEFT UPPER ARM SURGIFOAM AND PRESSURE DRESSING SOAKED WITH BLOOD . PT DENIES ANY PAIN TO ARM. DR COLIN PAGED IN REGARDS TO PTS ARM AND BLEEDING, PICTURE SENT [address] COLIN. ASKED ER MD TO BE CALLED TO LOOK AT THE ARM AND MAYBE NEEDS SUTURING OR SITE TO BE CAUTERIZE. 0145 CALLED ER. SPOKE TO THERMOCOUPLE TESTER. THERMOCOUPLE TESTER WILL COME TO LOOK AT ARM. STATES DR'S ARE CURRENTLY BUSY. 0153 THERMOCOUPLE TESTER CAME TO SEE PT, RN CAUTERIZED SITE AND APPLIED 2 SURGIFOAMS. APPLIED NEW PRESSURE DRESSING. PT DENIES ANY PAIN OR DISCOMFORT. WILL CONTINUE TO MONITOR PT. 0232 RN LODGE OFFICER PAGED AWARE OF PT ARM AND ER MD NOT ABLE TO SEE PT AT THIS TIME, WILL F/U WITH ER. 0245- B/P 114/61 HR 75. 02 SAT 96%, PT RESTING COMFORTABLY, ARM ELEVATED WITH 2 PILLOWS, PER NURSING LODGE OFFICER DR. DIXIE BACK NEEDS TO SEE THE PT AND ADDRESS THE ISSUE. 0300. DR COLIN PAGED
[2019-11-13] MEDS ORDERED: SILVER NITRATE APPLICATOR 1 EA BOX ONE (02:06)
--- NOTE | 2019-11-13 02:45 | NUR ---
RN NOTES, MULTIPLE KNIFE EDGE TRIMMER OPERATOR WONG MADE AWARE THAT ER NURSE CAME AND CAUTERIZED SITE W/O SUCCESS, BECAUSE PATIENT CONTINUE BLEEDING AND DRESSING AGAIN NOTED SOAKED, ASKED RN MULTIPLE KNIFE EDGE TRIMMER OPERATOR THAT PER DIXIE CRAWLEY FROM ER CAN DO SUTURES, MULTIPLE KNIFE EDGE TRIMMER OPERATOR AWARE AND WILL F/U WITH MD FOR POSSIBLE SUTURES.
--- NOTE | 2019-11-13 03:00 | NUR ---
RN NOTES, RN SOLDERING MACHINE TENDER REPLIED THAT MD UNABLE TO DO SUTURES AND DIXIE WILL NEED TO TAKE CARE OF THAT, WILL FOLLOW UP WITH DR COLIN.
--- NOTE | 2019-11-13 03:19 | NUR ---
RN NOTE CALLED [facility] TO CONTACT DR. COLIN. WOOD PREPARATION SUPERVISOR AWARE OF CALL MADE.
--- NOTE | 2019-11-13 03:30 | NUR ---
RN NOTE SPOKE TO DR. COLIN. AWARE SHE NEEDS TO SEE THE PT AND POSSIBLY SUTURE THE SITE. AWARE PT IS STILL BLEEDING FROM SITE. DR. COLIN, STATED," I CAN'T SUTURE, I DON'T DO THOSE PROCEDURES, THERE'S NOTHING I CAN DO ON MY END. PLEASE HAVE DR. LANGFORD F/U IN THE MORNING AND DO SUTURING IF STILL BLEEDING." 7580 SPOKE TO WONG NURSING SUPERVISOR TREE TRIMMING AWARE OF SITUATION. AWARE PT IS TO WAIT UNTIL THE AM. PER WONG INFORMATION IS TO BE ENDORSED TO AM RN.
[2019-11-13 04:00] VITALS: BP 116/59
--- NOTE | 2019-11-13 04:00 | NUR ---
RN NOTE APPLIED SAND BAG TO LEFT UPPER ARM. PT DENIES ANY PAIN, DISCOMFORT OR DIZZINESS AT THIS TIME.
[2019-11-13 06:31] LABS: CALCIUM, SERUM 7.8 mg/dL (8.5-10.1); CREATININE 0.7 mg/dL (0.6-1.3); POTASSIUM 4.1 mmol/L (3.5-5.1)
[2019-11-13 06:37] LABS: BASOPHILS # (AUTO) 0.2 /CMM (0.0-0.2); BASOPHILS % (AUTO) 1.6 % (0.0-2.0); EOSINOPHILS % (AUTO) 2.8 % (0.0-6.0); HEMATOCRIT 27 % (33-45); HEMOGLOBIN 8.2 g/dL (11.5-14.8); LYMPHOCYTES % (AUTO) 9.5 % (20.0-44.0); MEAN CORPUSCULAR HGB CONC 31 g/dl (31.0-36.0); MEAN CORPUSCULAR VOLUME 89 fL (82-100); MONOCYTES % (AUTO) 9.4 % (2.0-12.0); NEUTROPHILS # (AUTO) 8.3 /CMM (1.8-8.9); NEUTROPHILS % (AUTO) 76.7 % (43.0-81.0); PLATELET COUNT (AUTO) 165 /CMM (150-450); RED BLOOD CELL COUNT(AUTO) 2.99 MIL/uL (4.0-5.2); WHITE BLOOD COUNT (AUTO) 10.8 K/uL (4.3-11.0)
--- NOTE | 2019-11-13 06:46 | NUR ---
RN CLOSING NOTE PT IN BED A/O X 3, DENIES ANY PAIN TO LEFT ARM., PT IN NO DISTRESS ON O2 VIA NC 4 L/MIN, ANU MIDLINE PATENT AND INTACT. SAFETY MEASURES IN PLACE, CALL LIGHT WITHIN REACH, PT LEFT ARM CURRENTLY ELEVATED , SAND BAG ON LEFT ARM FOR PRESSURE, WOUND CONSULT ORDERED, PIPA RN AWARE. AM RN AWARE TO F/U WITH MD IN THE MORNING. PER DIXIE, CABLE TOWER OPERATOR PRIMITIVO CAN SUTURE IF NEEDED.
[2019-11-13 08:00] VITALS: BP 108/69
[2019-11-13] MEDS: FLUTICASONE/VILANTEROL 1 EACH BLST.W.DEV IH SCH (09:00)
[2019-11-13] MEDS: DOXYCYCLINE HYCLATE (100 MG) 100 MG TABLET PO SCH ×2 (09:00→21:02)
[2019-11-13] MEDS: ASCORBIC ACID 500 MG TABLET PO SCH (09:00)
[2019-11-13] MEDS: CHOLECALCIFEROL 1,000 UNIT TABLET (VIT D3) PO SCH (09:00)
[2019-11-13] MEDS: ZINC SULFATE 220 MG CAPSULE PO SCH (09:00)
--- NOTE | 2019-11-13 09:06 | NUR ---
WOUND CARE CONSULT: PT PRESENTS WITH LEFT SHOULDER WOUND WITH TATTOO NOTED. PT STATES HAS HAD BLEEDING FROM THIS SITE ON AND OFF SINCE LAST NIGHT. FIRM PRESSURE APPLIED FOR 15 MINUTES BUT CONTINUES TO BLEED. PRESSURE DRESSING WAS APPLIED BY AIRPORT SKILLED MAINTENANCE SUPERVISOR. AIRPORT SKILLED MAINTENANCE SUPERVISOR SPOKE WITH Jenn LUIS DNP AND SURGICAL CONSULT CALLED TO DR KOEHLER. PT'S GOWN AND BED CHANGED BY STAFF. WILL SEE PRN. PT IS AMBULATORY TO BATHROOM AND CONTINENT. Addendum: 11/13/19 at 0915 by NBA ANDRE WNDNU Amended: Links added.
[2019-11-13] MEDS ORDERED: LIDOCAINE 1% INJ 50 ML MDV IJ ONE (10:00)
[2019-11-13] MEDS ORDERED: LIDOCAINE 2%-EPI 1:100,000 30 ML VIAL IJ ONE (11:00)
--- NOTE | 2019-11-13 13:30 | NUR ---
NURSING SUP/KAT MADE AWARE PATIENT HAS ORDER TO TRANSFER TO CLEAN FLOOR,AWAITS BED.
--- NOTE | 2019-11-13 13:40 | NUR ---
PATIENT IN BED RESTING. NO SIGNS OR SYMPTOMS OF PAIN, SHORTNESS OF BREATH, OR DISCOMFORT. BED IN LOW POSITION. CALL LIGHT IN REACH. WILL GIVE REPORT TO 3RD FLOOR RN WHEN READY.
--- NOTE | 2019-11-13 14:00 | NUR ---
pt. transferred from [facility]la.now med surg. status.made comfortable in rm.vs taken.
[2019-11-13] MEDS: NEOMY SULF/BACITRAC ZN/POLY 15 GM TUBE TP SCH (14:30)
[2019-11-13 16:00] VITALS: BP 115/50
--- NOTE | 2019-11-13 18:00 | NUR ---
NEOSPORIN OINT. AND DRY DRESSING TO LT. SUTURED SHOULDER AREA.
--- NOTE | 2019-11-13 19:30 | NUR ---
MS RN OPENING NOTES RECEIVED PATIENT FROM MORNING SHIFT, ALERT AND ORIENTED X 3. VERBALLY RESPONSIVE AND ABLE TO FOLLOW DIRECTIONS. BREATHING REGULAR AND UNLABORED ON OXYGEN AT 4L/MIN. LEFT UPPER ARM MIDLINE INTACT AND PATENT FLUSHING WELL WITH NO BLEEDING OR S/S OF INFILTRATION NOTED. DENIES SUICIDAL IDEATION. NO COMPLAINTS OF PAIN/DISCOMFORT REPORTED AT THIS TIME. NO ACTIVE BLEEDING SEEN ON LEFT UPPER ARM WOUND INCISION. BED LOW AND LOCKED ON SEMI FOWLERS POSITION. CALL LIGHT IN REACH. WILL CONTINUE TO MONITOR.
[2019-11-13 20:00] VITALS: BP 105/47
[2019-11-13] MEDS: LEVOFLOXACIN (250MG) 250 MG TABLET PO SCH (20:07)
[2019-11-13 20:48] VITALS: BP 105/47
--- NOTE | 2019-11-14 02:00 | NUR ---
MS RN NOTES INCISION CARE ON LEFT SHOULDER PROVIDED, WOUND DRESSING CHANGED WITH NO BLEEDING OR S/S OF INFECTION NOTED. WILL CONTINUE TO MONITOR.
[2019-11-14] MEDS: MORPHINE SULFATE INJ 2 MG/ML DISP.SYRIN IV PRN ×3 (02:48→13:07)
--- NOTE | 2019-11-14 03:00 | NUR ---
MS RN NOTES COMPLAINED OF 8/10 LEFT SHOULDER PAIN, MORPHINE 2MG GIVEN VIA IV PUSH. NON-PHARMACOLOGICAL INTERVENTIONS PROVIDED. VITAL SIGNS WNL. WILL CONTINUE TO MONITOR.
--- NOTE | 2019-11-14 06:30 | NUR ---
MS RN CLOSING NOTES PATIENT IN BED ALERT AND ORIENTED X 3. AFEBRILE WITH NO S/S OF DISTRESS OBSERVED, LEFT UPPER ARM MIDLINE PATENT AND FLUSHING WELL. NO COMPLAINTS OF PAIN/DISCOMFORT REPORTED AT THIS TIME. BED LOW AND LOCKED ON SEMI FOWLERS POSITION. CALL LIGHT IN REACH. WILL ENDORSE TO MORNING SHIFT FOR LORE.
--- NOTE | 2019-11-14 07:39 | NUR ---
MS/RN CLOSING NOTES PATIENT IN BED ALERT AND ORIENTED X 3. AFEBRILE WITH NO S/S OF DISTRESS OBSERVED, LEFT UPPER ARM MIDLINE PATENT AND FLUSHING WELL. PATIENT COMPLAINTS OF PAIN AT 7/10. BED LOW AND LOCKED ON SEMI FOWLERS POSITION. CALL LIGHT IN REACH. WILL CONTINUE TO MONITOR.
[2019-11-14 07:54] LABS: C-REACTIVE PROTEIN 1.6 mg/dL (0.0-0.9)
[2019-11-14] MEDS: ZINC SULFATE 220 MG CAPSULE PO SCH (08:15)
[2019-11-14] MEDS: ASCORBIC ACID 500 MG TABLET PO SCH (08:16)
[2019-11-14] MEDS: DOXYCYCLINE HYCLATE (100 MG) 100 MG TABLET PO SCH (08:16)
[2019-11-14] MEDS: CHOLECALCIFEROL 1,000 UNIT TABLET (VIT D3) PO SCH (08:16)
--- NOTE | 2019-11-14 08:26 | NUR ---
MS/RN NOTES PATIENT COMPLAINED OF PAIN RATE 8/10 MORPHINE 2MG IV WAS GIVEN, WILL MONITOR CONTINUOUSLY.
[2019-11-14] MEDS: NEOMY SULF/BACITRAC ZN/POLY 15 GM TUBE TP SCH (08:38)
[2019-11-14] MEDS: FLUTICASONE/VILANTEROL 1 EACH BLST.W.DEV IH SCH (08:38)
[2019-11-14] MEDS ORDERED: LEVO500T2 PO (13:15)
[2019-11-14] MEDS ORDERED: HYDR-4384 PO (13:15)
--- NOTE | 2019-11-14 16:15 | NUR ---
MS/RN NOTES PATIENT IS ALERT AND ORIENTED X4. PATIENT IN NO APPARENT RESPIRATORY DISTRESS NOTED. IN ROOM AIR AND SATURATION AT 98%. RESPIRATION REGULAR AND UNLABORED. SEEN AND EXAMINED BY MD WITH ORDERS MADE AND NOTED. PATIENT DISCHARGED AT 1605. PATIENT WAS GIVEN DISCHARGED INSTRUCTIONS AND PATIENT VERBALIZED UNDERSTANDING. THE PATIENT LEFT THE HOSPITAL IN STABLE CONDITION, ACCOMPANIED BY NBA () ON A PA PRIVATE CAR.
== END 2019-11-14 16:05 | disposition home or self-care (01) | DRG 871 ==
LOC: ER 16:30 → TELE1 21:18 → TELE 11-08 09:37 → TELE1 11-08 10:42 → MEDSG1 11-13 12:37 → MED 11-13 14:11
PROVIDERS: ADMIT Nurse Practitioner Acute Care; ATTEND Nurse Practitioner Acute Care
PROC: 0JBF0ZX Excision of Left Upper Arm Subcutaneous Tissue and Fascia, Open Approach, Diagnostic (ICD-10-PCS; principal; 2019-11-13)
PROC: 05HA33Z Insertion of Infusion Device into Left Brachial Vein, Percutaneous Approach (ICD-10-PCS; 2019-11-14)
DX: A41.9 Sepsis, unspecified organism (principal); J18.9 Pneumonia, unspecified organism; J96.01 Acute respiratory failure with hypoxia; K92.2 Gastrointestinal hemorrhage, unspecified; J90 Pleural effusion, not elsewhere classified; R18.8 Other ascites; E44.0 Moderate protein-calorie malnutrition; L02.414 Cutaneous abscess of left upper limb; D68.59 Other primary thrombophilia; D68.9 Coagulation defect, unspecified; D50.9 Iron deficiency anemia, unspecified; K74.60 Unspecified cirrhosis of liver; Z68.33 Body mass index [BMI] 33.0-33.9, adult; J45.909 Unspecified asthma, uncomplicated; E87.5 Hyperkalemia; Z88.0 Allergy status to penicillin; Z85.828 Personal history of other malignant neoplasm of skin; E88.09 Other disorders of plasma-protein metabolism, not elsewhere classified; E66.9 Obesity, unspecified; E80.6 Other disorders of bilirubin metabolism; F17.210 Nicotine dependence, cigarettes, uncomplicated
CPT/HCPCS: 36410; 36415; 36600; 71045-TC; 80048-TC; 80053-TC; 80061-TC; 80076-TC; 80202-TC; 82272-TC; 82550-TC; 82728-TC; 83540-TC; 83605-TC; 83615-TC; 83690-TC; 83735-TC; 83880; 84100-TC; 84443-TC; 84484-TC; 85025-TC; 85378-TC; 85385-TC; 85730-TC; 86140-TC; 87040-TC; 87081-TC; 88305-TC; 93970-TC; A4216; A6403; G0378; G0480; J1650; J2185; J2270; J2916; J2920; J3370; J3490; J7030; J7040; J7050; J7060; Q9967; U0003-CS

== ENCOUNTER 2019-11-28 12:20 | Outpatient (CLI) | payer OTHER ==
[~2019-11-28 12:20] MED LIST: ALBU2.5V38 IH; ALBU8.5H8 IH; FLUT1DIS5 IH; FURO20TA4 PO; HYDR-4384 PO; IPRA0.2S9 IH; LEVO500T2 PO; POTA20TA83 PO; PRED10TA PO
== END 2019-11-28 23:59 | disposition home or self-care (01) ==
LOC: WOU 12:20
PROVIDERS: ATTEND Surgery
DX: S41.112D Laceration without foreign body of left upper arm, subsequent encounter (principal); X58.XXXD Exposure to other specified factors, subsequent encounter; Z85.828 Personal history of other malignant neoplasm of skin; E66.9 Obesity, unspecified; Z68.27 Body mass index [BMI] 27.0-27.9, adult; J45.909 Unspecified asthma, uncomplicated
CPT/HCPCS: G0463

== ENCOUNTER 2020-01-20 09:24 | Inpatient (IN) | payer OTHER ==
[~2020-01-20] VITALS: Ht 170.2 cm; Wt 97.5 kg
--- NOTE | 2020-01-20 09:40 | NUR ---
RODRIGUEZ FROM [facility] FOR WEAKNESS AND BLE EDEMA. A/OX4, NO C/O PAIN
--- NOTE | 2020-01-20 09:56 | NUR ---
electronic sales and service technician at bedside for exam
[2020-01-20 09:59] LABS: BASOPHILS # (AUTO) 0.1 /CMM (0.0-0.2)
[2020-01-20 10:03] LABS: BASOPHILS % (AUTO) 0.7 % (0.0-2.0); HEMATOCRIT 24 % (33-45); HEMOGLOBIN 7.4 g/dL (11.5-14.8); LYMPHOCYTES # (AUTO) 1.3 /CMM (0.8-4.8); LYMPHOCYTES % (AUTO) 8.4 % (20.0-44.0); MEAN CORPUSCULAR HGB CONC 31 g/dl (31.0-36.0); MEAN CORPUSCULAR VOLUME 90 fL (82-100); MONOCYTES # (AUTO) 1.4 /CMM (0.1-1.30); MONOCYTES % (AUTO) 9.2 % (2.0-12.0); NEUTROPHILS # (AUTO) 12.3 /CMM (1.8-8.9); NEUTROPHILS % (AUTO) 80.7 % (43.0-81.0); PLATELET COUNT (AUTO) 454 /CMM (150-450); RED BLOOD CELL COUNT(AUTO) 2.61 MIL/uL (4.0-5.2); WHITE BLOOD COUNT (AUTO) 15.2 K/uL (4.3-11.0)
[2020-01-20 10:06] LABS: CALCIUM, SERUM 10.1 mg/dL (8.5-10.1); CREATININE 1.2 mg/dL (0.6-1.3); POTASSIUM 4.4 mmol/L (3.5-5.1)
[2020-01-20 10:22] LABS: ALBUMIN 2.3 g/dL (3.4-5.0); BILIRUBIN,DIRECT 1.6 mg/dL (0.0-0.2); BILIRUBIN,TOTAL 2.6 mg/dL (0.2-1.0); TOTAL PROTEIN, SERUM 6.4 g/dL (6.4-8.2)
[2020-01-20 10:42] LABS: D-DIMER 29.55 mg/L(FEU (0.17-0.50)
--- NOTE | 2020-01-20 10:43 | NUR ---
MOVE SHEET SUBMITTED TO ADMITTING AND CALLED FOR TELE BED.
--- NOTE | 2020-01-20 11:30 | NUR ---
CALLED [facility] DR. ALTMAN
[2020-01-20 11:41] LABS: EOSINOPHILS % (MANUAL) 2 % (0-4); LYMPHOCYTES % (MANUAL) 3 % (16-48); MONOCYTES % (MANUAL) 6 % (0-11.0); NEUTROPHILS % (MANUAL) 89 (42-76)
[2020-01-20] MEDS ORDERED: FLUTICASONE/SALMETEROL 1 DISK IH SCH (12:30)
[2020-01-20] MEDS ORDERED: ACETAMINOPHEN 325 MG TABLET PO PRN (12:30)
[2020-01-20] MEDS ORDERED: MAGNESIUM HYDROXIDE 30 ML UDC PO PRN (12:30)
[2020-01-20] MEDS ORDERED: ONDANSETRON HCL/PF 4 MG/2 ML VIAL IVP PRN (12:30)
[2020-01-20] MEDS ORDERED: Z GUARD REMEDY 2 OZ OINT TP PRN (12:30)
[2020-01-20] MEDS ORDERED: MAG HYDROX/AL HYDROX/SIMETH 30 ML UDC PO PRN (12:30)
[2020-01-20] MEDS ORDERED: ZOLPIDEM TARTRATE 5 MG TABLET PO PRN (12:30)
--- NOTE | 2020-01-20 12:44 | NUR ---
GOT BED 312-1
[2020-01-20] MEDS ORDERED: ALBUTEROL SULFATE INH 18 GM HFA.AER.AD IH PRN (13:30)
[2020-01-20] MEDS ORDERED: FEE PK DOSING 1 MIN EA MC ONE (13:41)
--- NOTE | 2020-01-20 13:45 | NUR ---
Patient admitted from ER with leena, reported by Eleuterio/RN.
[2020-01-20 14:00] VITALS: BP 133/96
[2020-01-20] MEDS ORDERED: ALBUTEROL FS 2.5 MG/3 ML VIAL.NEB NEB PRN (14:00)
[2020-01-20 16:00] VITALS: BP 108/50
[2020-01-20] MEDS: VANCOMYCIN 0.75 GM in IV D5W 250 ML IV SCH (16:01)
[2020-01-20] MEDS: PIPERACILLIN /TAZOBACTAM 3.375 G in IV D5W 50 ML IV SCH ×3 (16:01→23:29)
--- NOTE | 2020-01-20 18:49 | NUR ---
RN Closing Patient in bed comfortably, finished dinner, denies pain or distress. Reparatory even and unlabored in room air, skin is warm to touch, kept clean, dry. Noticed skin tear on right wrist and picture taken. Keep bed in locked with elevated HOB for ensure airway and aspiration precaution. Call light within reach, will endorse night clerk auditor.
--- NOTE | 2020-01-20 19:38 | NUR ---
GAGE MAKER OPENING NOTES RECEIVED PATIENT RESTING IN BED COMFORTABLY; A/OX4; BREATHING EVEN AND UNLABORED; NO SOB NOTED; PATIENT TOLERATING ROOM AIR WELL; PATIENT DENIES PAIN; NO DISTRESS NOTED; TELE MONITOR READS SR 90S - 100S BPM; L AC #18 INTACT AND PATENT, FLUSHING WELL; TOLERATING IV ABX WELL; PATIENT UNDERSTANDS MEDICATION REGIME AND TREATMENT PLAN; SAFETY PRECAUTIONS IMPLEMENTED; BED LOCKED IN LOW POSITION; SIDE RAILSX2; CALL LIGHT WITHIN REACH; WILL CONT TO MONITOR
[2020-01-20 20:00] VITALS: BP_SYST 102; BP_SYST 118; BP_DIAS 51; BP_DIAS 55
[2020-01-21] VITALS (11 sets, daily range): BP systolic 92–119; BP diastolic 55–66
--- NOTE | 2020-01-21 03:04 | NUR ---
QUALITY ASSURANCE COACH NOTES AWAITING VANCO TROUGH PRIOR TO ADMINISTRATION; WILL CONTACT LAB Addendum: 01/21/20 at 0320 by EMILY MAR RN NO VANCO TROUGH SCHEDULED; WILL ADMINISTER VANCO IV ORDERED
[2020-01-21] MEDS: VANCOMYCIN 0.75 GM in IV D5W 250 ML IV SCH ×2 (03:19→15:29)
[2020-01-21] MEDS: HYDROCODONE/APAP 5/325MG 1 EACH TABLET PO PRN ×2 (03:33→11:45)
--- NOTE | 2020-01-21 03:37 | NUR ---
AUTOMOTIVE CENTER MANAGER NOTES PATIENT COMPLAINT OF ABDOMINAL PAIN; REQUESTED NORCO; NORCO ADMINISTERED PER MD ORDER; PATIENT IS A/OX4; ABLE TO MAKE NEEDS KNOWN; BREATHING EVEN AND UNLABORED; WILL CONT TO MONITOR
--- NOTE | 2020-01-21 04:49 | NUR ---
HOG WORKER NOTES L AC #18 INFILTRATED; VANCO STOPPED; PATIENT DENIES PAIN; PATIENT ASKED IF POSSIBLE FOR MIDLINE INSERTION IN MORNING SINCE SHE KNOWS SHE IS A HARD STICK; PER PATIENT, WHEN SHE WAS ADMITTED IN [facility] IN OCTOBER, PATIENT HAD MIDLINE AND COURSE OF IV ABX WELL; MD MADE AWARE; CHARGE NURSE AWARE; AWAITING ORDERS R WRIST #22 INTACT AND PATENT, FLUSHING WELL; NO S/S OF REDNESS OR INFILTRATION; VANCO CONTINUED; WILL CONT TO MONITOR
--- NOTE | 2020-01-21 05:02 | NUR ---
VOLUMETRIC WEIGHER NOTES DENICE GUTIÉRREZ GAVE OK FOR MIDLINE INSERTION IN AM; NURSING COUNTER CASER WONG AWARE; CHARGE NURSE AWARE; PATIENT INFORMED; WILL INFORM DAY SHIFT; WILL CONT TO MONITOR
[2020-01-21] MEDS: PIPERACILLIN /TAZOBACTAM 3.375 G in IV D5W 50 ML IV SCH ×4 (05:59→23:21)
--- NOTE | 2020-01-21 06:34 | NUR ---
CLOTH GRADER CLOSING NOTES PATIENT RESTING IN BED COMFORTABLY; A/OX4; TOLERATING ROOM AIR WELL; NO SOB NOTED; TELE MONITOR READS NSR 80S BPM; PATIENT ABLE TO MAKE NEEDS KNOWN; R WRIST #22, INTACT AND PATENT; FLUSHING WELL; ALL NEEDS RENDERED; NURSING HAUL TRUCK DRIVER, AND CHARGE NURSE AWARE FOR MIDLINE INSERTION; WILL INFORM ONCOMING NURSE; SAFETY PRECAUTIONS IMPLEMENTED; BED LOCKED IN LOW POSITION; SIDE RAILSX2; CALL LIGHT WITHIN EASY REACH; WILL ENDORSE LORE TO ONCOMING SHIFT
--- NOTE | 2020-01-21 07:00 | NUR ---
RN OPENING NOTES RECEIVED PATIENT IN BED RESTING. A/OX4. NOT IN ANY FORM OF DISTRESS. NO SOB. DENIED PAIN OR DISCOMFORT AT THIS TIME. IV ACCESS INTACT AND PATENT. SAFETY MEASURES IN PLACE. BED IN LOW/LOCKED POSITION, SIDERAILS UP X2, CALL LIGHT IN REACH. WILL CONT TO MONIOTR ACCORDINGLY
[2020-01-21 07:36] LABS: CREATININE 1.1 mg/dL (0.6-1.3); MAGNESIUM 2.1 mg/dL (1.8-2.4); PHOSPHORUS 3.1 mg/dL (2.5-4.9); POTASSIUM 4.2 mmol/L (3.5-5.1)
[2020-01-21 07:38] LABS: THYROID STIMULATING HORMONE 1.403 uIU/mL (0.358-3.74)
[2020-01-21] MEDS: PANTOPRAZOLE 40 MG TABLET.DR PO SCH (08:07)
[2020-01-21] MEDS: FLUTICASONE/VILANTEROL 1 EACH BLST.W.DEV IH SCH (08:11)
[2020-01-21] MEDS: predniSONE 10 MG TABLET PO SCH (08:12)
[2020-01-21] MEDS ORDERED: FUROSEMIDE 20 MG TABLET PO SCH (09:00)
[2020-01-21 14:54] LABS: BASOPHILS % (AUTO) 0.4 % (0.0-2.0); EOSINOPHILS % (AUTO) 1.8 % (0.0-6.0); LYMPHOCYTES # (AUTO) 2.1 /CMM (0.8-4.8); LYMPHOCYTES % (AUTO) 16.6 % (20.0-44.0); MEAN CORPUSCULAR HGB CONC 32 g/dl (31.0-36.0); MEAN CORPUSCULAR VOLUME 89 fL (82-100); MONOCYTES # (AUTO) 1.6 /CMM (0.1-1.30); MONOCYTES % (AUTO) 12.3 % (2.0-12.0); NEUTROPHILS # (AUTO) 8.7 /CMM (1.8-8.9); NEUTROPHILS % (AUTO) 68.9 % (43.0-81.0); PLATELET COUNT (AUTO) 347 /CMM (150-450); RED BLOOD CELL COUNT(AUTO) 2.28 MIL/uL (4.0-5.2); WHITE BLOOD COUNT (AUTO) 12.7 K/uL (4.3-11.0)
[2020-01-21 15:00] LABS: HEMOGLOBIN 6.5 g/dL (11.5-14.8)
[2020-01-21 15:01] LABS: HEMATOCRIT 20 % (33-45)
[2020-01-21 15:20] LABS: LYMPHOCYTES % (MANUAL) 14 % (16-48); MONOCYTES % (MANUAL) 10 % (0-11.0); NEUTROPHILS % (MANUAL) 72 (42-76)
[2020-01-21 15:21] LABS: EOSINOPHILS % (MANUAL) 4 % (0-4)
[2020-01-21] MEDS ORDERED: CALCIUM CARBONATE 500 MG TAB.CHEW PO PRN (18:00)
[2020-01-21] MEDS ORDERED: SPIRONOLACTONE 25 MG TABLET PO SCH (18:30)
[2020-01-21] MEDS ORDERED: FUROSEMIDE 20 MG/2 ML VIAL IV PRN (18:30)
--- NOTE | 2020-01-21 19:15 | NUR ---
PATIENT IN STABLE CONDITION. ALL NEEDS ATTENDED AND PROVIDED. ALL DUE MEDS GIVEN ORDERED. SAFETY MEASURES IN PLACE. BED IN LOW/LOCKED POSITION, SIDERAILS UPX2, CALL LIGHT IN REACH. ENDORSED TO NIGHT RN FOR LORE.
--- NOTE | 2020-01-21 19:20 | NUR ---
CHOIR ACCOMPANIST NOTES PT IN BED NO SOB, NAD. NSR ON TELE MONITOR. AOX4. ABLE TO MAKE NEEDS KNOWN. CONTINENT OF URINE AND BOWELS W/BED SIDE COMMODE. R WRIST PIV 20G. ENDORSED FROM DAY SHIFT VARSHA HOOD ABOUT THE ORDER OF BLOOD TRANSFUSION. BED IS LOCKED AND IN THE LOWEST POSITION. ALL SAFETY MEASURES IN PLACE. PT IN GOOD SPIRITS. WILL CONT TO MONITOR
[2020-01-21] MEDS: SPIRONOLACTONE 25 MG TABLET PO SCH (19:30)
--- NOTE | 2020-01-21 20:10 | NUR ---
PICKED UP BLOOD FROM LAB. WILL ADMIN ACCORDING TO THE [facility] PROTOCOL.
[2020-01-21] MEDS: PROPRANOLOL HCL 10 MG TABLET PO SCH (20:26)
--- NOTE | 2020-01-21 22:15 | NUR ---
BLOOD TRANSFUSION IS COMPLETE WITHOUT ANY ADVERSE REACTIONS. PT IS RESTING COMFORTABLY IN BED. NAD
[2020-01-22] VITALS (7 sets, daily range): BP systolic 98–157; BP diastolic 50–83
[2020-01-22] MEDS: HYDROCODONE/APAP 5/325MG 1 EACH TABLET PO PRN ×5 (01:41→16:43)
[2020-01-22] MEDS: VANCOMYCIN 0.75 GM in IV D5W 250 ML IV SCH ×2 (02:38→15:00)
[2020-01-22] MEDS: PIPERACILLIN /TAZOBACTAM 3.375 G in IV D5W 50 ML IV SCH ×3 (06:00→18:00)
--- NOTE | 2020-01-22 07:05 | NUR ---
PHYSICAL SCIENCE PROFESSOR OPENING NOTES RECEIVED PATIENT RESTING COMFORTABLY IN BED. A/OX4; PT ABLE TO VERBALIZE NEEDS. BREATHING EVEN AND UNLABORED; NO SOB NOTED, NO S/S OF ANY ACUTE DISTRESS NOTED, NO C/O PAIN AT THIS TIME. RESPIRATION EVEN AND UNLABORED. PT ON EXTERNAL TELE MONITOR READS NSR 80S-90S BPM;PT NOTED WITH MULTIPLE SKIN DISCOLORATIONS, NO IV ACCESS NOTED. PER NIGHT NURSE, PT HAS AN ORDER FOR A MIDLINE INSERTION DUE TO UNABLE TO GET AN IV ACCESS. SAFETY PRECAUTIONS IN PLACE. BED IN LOWEST LOCKED POSITION, HOB ELEVATED, SIDE RAILS X2, CALL LIGHT WITHIN REACH. WILL CONTINUE TO MONITOR.
[2020-01-22] MEDS: PANTOPRAZOLE 40 MG TABLET.DR PO SCH (07:48)
[2020-01-22] MEDS ORDERED: FUROSEMIDE 40 MG TABLET PO SCH (09:00)
[2020-01-22] MEDS: SPIRONOLACTONE 25 MG TABLET PO SCH (09:05)
[2020-01-22] MEDS: predniSONE 10 MG TABLET PO SCH (09:06)
[2020-01-22] MEDS: PROPRANOLOL HCL 10 MG TABLET PO SCH (09:06)
--- NOTE | 2020-01-22 09:07 | NUR ---
PATIENT C/O OF PULLING RIGHT LOWER ABD PAIN OF 7/10, PATIENT REQUESTED PAIN MEDICATION.VS WNL. NORCO 5-325 PO PRN Q6HR WAS ADMINISTERED ORDERED. WILL CONTINUE TO MONITOR
[2020-01-22] MEDS: FLUTICASONE/VILANTEROL 1 EACH BLST.W.DEV IH SCH (09:09)
[2020-01-22 09:32] LABS: CALCIUM, SERUM 8.9 mg/dL (8.5-10.1); MAGNESIUM 1.8 mg/dL (1.8-2.4); PHOSPHORUS 3.3 mg/dL (2.5-4.9); POTASSIUM 3.8 mmol/L (3.5-5.1)
--- NOTE | 2020-01-22 09:34 | NUR ---
WOUND CARE CONSULT: PT PRESENTS WITH RT WRIST SKIN TEAR AND MULTIPLE AREAS OF SKIN DISCOLORATION TO ARMS, PRESENT ON ADMISSION. SCAR NOTED TO LEFT UPPER SHOULDER WITH TATTOO. RECOMMENDATIONS MADE FOR SKIN PROTECTION AND WOUND CARE. DISCUSSED WITH NURSING STAFF. WILL SEE PRN. CRAWLEY IN AGREEMENT WITH PLAN OF CARE. Addendum: 01/22/20 at 0936 by NBA ANDRE WNJULIO CESARU Amended: Links added. Addendum: 01/22/20 at 1013 by NBA ANDRE WNJULIO CESARU ADDITIONAL: PT REQUESTS NAIL TRIM. SOME TOENAILS NOTED TO BE LONG AND JAGGED. DR FULLER NOTIFIED.
[2020-01-22 09:36] LABS: BASOPHILS # (AUTO) 0.2 /CMM (0.0-0.2); EOSINOPHILS % (AUTO) 3.3 % (0.0-6.0); HEMATOCRIT 26 % (33-45); HEMOGLOBIN 8.2 g/dL (11.5-14.8); LYMPHOCYTES % (AUTO) 13.5 % (20.0-44.0); MEAN CORPUSCULAR HGB CONC 32 g/dl (31.0-36.0); MEAN CORPUSCULAR VOLUME 89 fL (82-100); MONOCYTES # (AUTO) 1.4 /CMM (0.1-1.30); MONOCYTES % (AUTO) 9.4 % (2.0-12.0); NEUTROPHILS # (AUTO) 10.7 /CMM (1.8-8.9); NEUTROPHILS % (AUTO) 72.8 % (43.0-81.0); PLATELET COUNT (AUTO) 351 /CMM (150-450); RED BLOOD CELL COUNT(AUTO) 2.87 MIL/uL (4.0-5.2); WHITE BLOOD COUNT (AUTO) 14.7 K/uL (4.3-11.0)
--- NOTE | 2020-01-22 15:00 | NUR ---
CONSENT FOR ULTRA SOUND GUIDED PARACENTESIS SIGNED BY PATIENT AND FILED IN CHART. PARACENTESIS DONE AT BED SIDE, [id number] YELLOW CLOUDY FLUID REMOVED AND DISCARDED PER ORDER. PAT REMAINS STABLE. WILL CONTINUE TO MONITOR
--- NOTE | 2020-01-22 15:00 | NUR ---
PER DR LANGFORD, PATIENT IS BEING DISCARGED AND WOULD NOT BE NEEDING A MIDLINE INSERTION. KEVIN, CHARGE NURSE WAS MADE AWARE. ZOSYN AND VANCOMYCIN NOT ADMINISTERED DUE TO PT DO NOT HAVE AN IV ACCESS. WILL CONTINUE TO MONITOR
[2020-01-22] MEDS ORDERED: SPIR50TA5 PO (16:09)
[2020-01-22] MEDS ORDERED: FURO40TA5 PO (16:09)
[2020-01-22] MEDS ORDERED: HYDR-4384 PO (16:09)
[2020-01-22] MEDS ORDERED: PROP20TA7 PO (16:09)
--- NOTE | 2020-01-22 18:01 | NUR ---
PATIENT IS BEING DISCHARGED. PER DR LANGFORD REQUEST, PATIENT DOES NO NEED MIDLINE INSERTIONS. UNABLE TO GET IV ACCESS. ZOSYN NOT ADMINISTERED DUE TO PT DO NOT HAVE AN IV ACCESS. KEVIN CHARGE NURSE MADE AWARE. WILL CONTINUE TO MONITOR
--- NOTE | 2020-01-22 19:04 | NUR ---
MS RN CLOSING NOTES PATIENT AWAKE IN BED. PT REMAINED STABLE THROUGHOUT SHIFT. PT KEPT CLEAN AND DRY. ALL CARE, TREATMENT AND MEDICATIONS ADMINISTERED ANTICIPATED PER ORDER. SAFETY PRECAUTIONS IN PLACE. BED IN LOWEST LOCKED POSITION, HOB ELEVATED, SIDE RAILS X2, CALL LIGHT WITHIN REACH. WILL ENDORSE TO WEAVE ROOM SUPERVISOR NURSE FOR LORE
--- NOTE | 2020-01-22 20:12 | NUR ---
RN NOTE DISCHARGE INSTRUCTIONS GIVEN TO PATIENT WHO VERBALIZED UNDERSTANDING OF FOLLOW UP OF CARE. WITNESSED PT SIGN DISCHARGE FORM.
--- NOTE | 2020-01-22 20:55 | NUR ---
RN CLOSING NOTE PT DISCHARGED IN STABLE CONDITION VIA WHEELCHAIR.
== END 2020-01-22 21:05 | disposition home or self-care (01) | DRG 432 ==
LOC: ER 09:28 → TELE 12:49
PROVIDERS: ATTEND Nurse Practitioner Acute Care
PROC: 0W9G3ZZ Drainage of Peritoneal Cavity, Percutaneous Approach (ICD-10-PCS; principal; 2020-01-20)
PROC: 30233P1 Transfusion of Nonautologous Frozen Red Cells into Peripheral Vein, Percutaneous Approach (ICD-10-PCS; 2020-01-21)
PROC: 0W9G3ZZ Drainage of Peritoneal Cavity, Percutaneous Approach (ICD-10-PCS; 2020-01-22)
DX: K74.60 Unspecified cirrhosis of liver (principal); I50.33 Acute on chronic diastolic (congestive) heart failure; E44.0 Moderate protein-calorie malnutrition; K76.6 Portal hypertension; R18.8 Other ascites; D68.9 Coagulation defect, unspecified; E66.9 Obesity, unspecified; D64.9 Anemia, unspecified; J45.909 Unspecified asthma, uncomplicated; Z68.35 Body mass index [BMI] 35.0-35.9, adult; Z88.0 Allergy status to penicillin; R53.1 Weakness; E88.09 Other disorders of plasma-protein metabolism, not elsewhere classified; D18.09 Hemangioma of other sites; E80.6 Other disorders of bilirubin metabolism; R74.0 Nonspecific elevation of levels of transaminase and lactic acid dehydrogenase [LDH]; M79.672 Pain in left foot; M79.671 Pain in right foot
CPT/HCPCS: 36415; 71045-TC; 76942-TC; 80048-TC; 80061-TC; 80076-TC; 80202-TC; 83735-TC; 83880; 84100-TC; 84443-TC; 84484-TC; 85025-TC; 85378-TC; 85730-TC; 86850-TC; 86921-TC; 87081-TC; 93970-TC; 97116-TC; 97530-TC; A4216; A6403; G0378; J2543; J3370; J7030; J7050; J7060; P9016-BL

== ENCOUNTER 2020-02-22 07:12 | Inpatient (IN) | payer OTHER ==
[~2020-02-22] VITALS: Ht 172.7 cm; Wt 83.9 kg
[~2020-02-22 07:12] MED LIST changes: -FURO20TA4 PO; +FURO40TA5 PO; -LEVO500T2 PO; -POTA20TA83 PO; +PROP20TA7 PO; +SPIR50TA5 PO
--- NOTE | 2020-02-22 07:41 | NUR ---
COMMUNITY LIVING INSTRUCTOR AT BEDSIDE
--- NOTE | 2020-02-22 07:41 | NUR ---
ROBIN RA 909 FROM HOME. PATIENT STATES "ABDOMINAL DISTENTION/PAIN, DIARRHEA AND RETAINING FLUID". TO ER BED 4, HOOKED TO MONITOR, CHANGED TO HOSP GOWN, WARM BLANKET PROVIDED, PATIENT AAO x 4, BREATHING EVEN AND UNLABORED. DR HOBBS AT BEDSIDE FOR EVAL.
--- NOTE | 2020-02-22 08:05 | NUR ---
CALLED NURSING MARKETING SERVICES MANAGER FOR TELE BED.
[2020-02-22 08:16] LABS: BASOPHILS # (AUTO) 0.1 /CMM (0.0-0.2); BASOPHILS % (AUTO) 0.6 % (0.0-2.0); EOSINOPHILS % (AUTO) 0.5 % (0.0-6.0); HEMATOCRIT 27 % (33-45); HEMOGLOBIN 8.9 g/dL (11.5-14.8); LYMPHOCYTES # (AUTO) 2.2 /CMM (0.8-4.8); LYMPHOCYTES % (AUTO) 12.9 % (20.0-44.0); MEAN CORPUSCULAR HGB CONC 32 g/dl (31.0-36.0); MEAN CORPUSCULAR VOLUME 96 fL (82-100); MONOCYTES # (AUTO) 1.5 /CMM (0.1-1.30); MONOCYTES % (AUTO) 8.7 % (2.0-12.0); NEUTROPHILS # (AUTO) 13.3 /CMM (1.8-8.9); NEUTROPHILS % (AUTO) 77.3 % (43.0-81.0); PLATELET COUNT (AUTO) 337 /CMM (150-450); RED BLOOD CELL COUNT(AUTO) 2.86 MIL/uL (4.0-5.2); WHITE BLOOD COUNT (AUTO) 17.2 K/uL (4.3-11.0)
[2020-02-22 08:19] LABS: CALCIUM, SERUM 9.6 mg/dL (8.5-10.1); CREATININE 1.4 mg/dL (0.6-1.3); POTASSIUM 4.2 mmol/L (3.5-5.1)
[2020-02-22 08:29] LABS: ALBUMIN 2.1 g/dL (3.4-5.0); BILIRUBIN,DIRECT 1.4 mg/dL (0.0-0.2); BILIRUBIN,TOTAL 2.9 mg/dL (0.2-1.0); TOTAL PROTEIN, SERUM 6.5 g/dL (6.4-8.2)
--- NOTE | 2020-02-22 08:40 | NUR ---
PICKED UP BY MANAGER MARKET FOR CT SCAN
--- NOTE | 2020-02-22 08:56 | NUR ---
DR HOBBS AT BEDSIDE TO EXPLAIN PARACENTESIS PROCEDURE, PATIENT SIGNED CONSENT
--- NOTE | 2020-02-22 08:59 | NUR ---
DR HOBBS AT BEDSIDE FOR PARACENTESIS
[2020-02-22] MEDS ORDERED: VANCOMYCIN 1 GM in IV D5W 250 ML IV ONE (09:00)
[2020-02-22] MEDS ORDERED: LEVOFLOXACIN 750 MG /D5W 150ML PIGGYBACK IV ONE (09:00)
--- NOTE | 2020-02-22 09:03 | NUR ---
COLLECTED TOTAL OF 5L OF ASCITES FLUID. PATIENT TOLERATED PROCEDURE WELL. STABLE VSS.
[2020-02-22 09:18] LABS: LYMPHOCYTES % (MANUAL) 7 % (16-48); MONOCYTES % (MANUAL) 9 % (0-11.0); NEUTROPHILS % (MANUAL) 84 (42-76)
[2020-02-22] MEDS ORDERED: LEVOFLOXACIN 750 MG /D5W 150ML 150 ML IV ONE (09:30)
[2020-02-22] MEDS ORDERED: FLAGYL/NS RTU 500 MG/100 ML PIGGYBACK IV ONE (10:00)
[2020-02-22] MEDS ORDERED: FUROSEMIDE 40 MG/4 ML VIAL IV ONE (10:00)
--- NOTE | 2020-02-22 10:02 | NUR ---
STOOL SAMPLE COLLECTED AND SENT TO LAB
[2020-02-22] MEDS ORDERED: POTA20TA83 PO (10:05)
--- NOTE | 2020-02-22 10:11 | NUR ---
URINE SAMPLE COLLECTED VIA STRAIGHT CATHETER, SAMPLE SENT TO LAB
[2020-02-22] MEDS ORDERED: FUROSEMIDE 40 MG/4 ML VIAL ONE (10:22)
[2020-02-22] MEDS ORDERED: METRONIDAZOLE 500MG/ NS 100ML 100 ML IV ONE (10:22)
[2020-02-22 10:25] LABS: APPEARANCE,URINE CLEAR (CLEAR); BILIRUBIN,URINE NEGATIVE (NEGATIVE); BLOOD, URINE TRACE-INTA Ery/uL (NEGATIVE); COLOR,URINE DARK YELLO (YELLOW); KETONES,URINE TRACE (NEGATIVE); LEUKOCYTE ESTERASE ,URINE TRACE (NEGATIVE); NITRITE, URINE NEGATIVE (NEGATIVE); PH,URINE 5.5 (5.0-8.0); PROTEIN,URINE TRACE mg/dl (NEGATIVE); UGLUCOSE NEGATIVE (NEGATIVE); UROBILINOGEN,URINE 0.2 EU/dL (0.2)
[2020-02-22 10:38] LABS: BACTERIA,URINE Few /HPF (None Seen); RBC,URINE 0-2 /HPF (0-2); SQUAMOUS EPITHELIAL CELL,UR Moderate /HPF (None Seen)
--- NOTE | 2020-02-22 11:33 | NUR ---
Elizabeth man in [facility] - 02/22/20 at 1134 by FLORECITA LAD CALLED. PT IS ANTIBODY POSITIVE.
[2020-02-22] MEDS ORDERED: ACETAMINOPHEN 325 MG TABLET PO PRN (12:30)
[2020-02-22] MEDS ORDERED: FLUTICASONE/SALMETEROL 1 DISK IH SCH (12:30)
[2020-02-22] MEDS: DOCUSATE SODIUM LIQ 100 MG/10 ML UDC PO SCH ×2 (12:30→17:00)
[2020-02-22] MEDS ORDERED: ALBUTEROL FS 2.5 MG/3 ML VIAL.NEB IH PRN (12:30)
[2020-02-22] MEDS ORDERED: MAG HYDROX/AL HYDROX/SIMETH 30 ML UDC PO PRN (12:30)
[2020-02-22] MEDS ORDERED: Z GUARD REMEDY 2 OZ OINT TP PRN (12:30)
[2020-02-22] MEDS ORDERED: ZOLPIDEM TARTRATE 5 MG TABLET PO PRN (12:30)
[2020-02-22] MEDS ORDERED: ONDANSETRON HCL/PF 4 MG/2 ML VIAL IVP PRN (12:30)
[2020-02-22] MEDS ORDERED: MAGNESIUM HYDROXIDE 30 ML UDC PO PRN (12:30)
[2020-02-22] MEDS ORDERED: ALBUTEROL SULFATE INH 18 GM HFA.AER.AD IH PRN (12:30)
[2020-02-22] MEDS ORDERED: IPRATROPIUM NEB FS 0.5 MG/2.5 ML AMPUL.NEB IH PRN (12:30)
--- NOTE | 2020-02-22 12:51 | NUR ---
CLARIFIED W DR HOBBS THAT HIM AND DR AGAPITO MUNGUIA ALREADY SPOKE ABOUT ADMITTING MD COMFORTABLE WITH RAPID COVID RESULT. SPOKE TO PORTILLO CHARGE NURSE OF MS3/TELE, INFORMED THAT IF THEY HAVE QUESTIONS THEN SPEAK WITH THE ADMITTING MD PER DR HOBBS.
--- NOTE | 2020-02-22 12:57 | NUR ---
REPORT GIVEN TO SISSY MADDOX OF TELE UNIT
[2020-02-22] MEDS: FLUTICASONE/VILANTEROL 1 EACH BLST.W.DEV IH SCH (13:00)
--- NOTE | 2020-02-22 13:21 | NUR ---
per no need for covid isolation, he okayed to admit pt in room 319.
[2020-02-22 14:00] VITALS: BP 102/55
[2020-02-22] MEDS: ENOXAPARIN SODIUM 40 MG/0.4 ML DISP.SYRIN SQ SCH (14:09)
--- NOTE | 2020-02-22 14:30 | NUR ---
BRIDGE MANAGER NOTES RECEIVED PT IN A GURNEY, AWAKE, A/O X4. TOLERATING RA, WITH NO ACUTE RESPIRATORY DISTRESS NOTED. PT DENIES ANY PAIN AT THIS TIME. PIV LAC G20, FLUSHED WITH NS, INTACT AND OPERATIONAL. PT PROVIDED HISTORY. CLAIMED NO BED SORES, SKIN ASSESSED. PICTURES TAKEN AND RECORDED IN THE CHART. PT ORIENTED TO THE UNIT AND STAFFS. PT KEPT COMFORTABLE IN BED. HOB ELEVATED. ALL NEEDS AND CARE ATTENDED. CALL LIGHT KEPT WITHIN REACH. PT'S BED IN LOWEST, LOCKED POSITION WITH SR X2. WILL CONTINUE PLAN OF CARE.
[2020-02-22 16:00] VITALS: BP 100/46
--- NOTE | 2020-02-22 18:37 | NUR ---
RN NOTES PT REMAINS IN BED, AWAKE, A/O X4. TOLERATING RA, WITH NO ACUTE RESPIRATORY DISTRESS NOTED. PT DENIES ANY PAIN AT THIS TIME. PIV LAC G20, FLUSHED WITH NS, INTACT AND OPERATIONAL. PT KEPT COMFORTABLE IN BED. HOB ELEVATED. ALL NEEDS AND CARE ATTENDED. CALL LIGHT KEPT WITHIN REACH. PT'S BED IN LOWEST, LOCKED POSITION WITH SR X2. WILL ENDORSE TO INCOMING NIGHT NURSE FOR LORE.
[2020-02-22] MEDS: HYDROCODONE/APAP 5/325MG TABLET PO PRN (19:56)
[2020-02-22 20:00] VITALS: BP 14/57
--- NOTE | 2020-02-22 20:00 | NUR ---
MS RN OPENING NOTES RECEIVED PATIENT IN BED, AWAKE, CONSCIOUS, COOPERATIVE, A/OX4, BREATHING AT ROOM AIR, UNLABORED BREATHING, NO SIGNS OF RESPIRATORY DISTRESS, LAC #20G SL, AMBULATORY, SIDE RAILS UP.
--- NOTE | 2020-02-22 23:30 | NUR ---
MS MADDOX NOTES VITAL SIGNS PRIOR TO BLOOD TRANSFUSION. T- 97.8, P- 85, RR- 18, BP- 138/60, O2 SAT 97%. TALKED TO DR. MCFARLAND. SHE SAID PATIENT WILL ON A REGULAR DIET. Addendum: 02/23/20 at 0009 by LUZ MARINA GAMBINO RN WRONG PATIENT. Addendum: 02/23/20 at 0010 by LUZ MARINA GAMBINO RN WRONG PATIENT.
--- NOTE | 2020-02-23 00:01 | NUR ---
MS MADDOX NOTES LAB MADE AWARE REGARDING UNABLE TO DOCUMENT VITAL SIGNS FOR BLOOD TRANSFUSION. Addendum: 02/23/20 at 0010 by LUZ MARINA GAMBINO RN WRONG PATIENT.
[2020-02-23] MEDS: HYDROCODONE/APAP 5/325MG TABLET PO PRN ×3 (05:36→19:47)
--- NOTE | 2020-02-23 06:53 | NUR ---
MS RN CLOSING NOTES ENDORSED PATIENT IN BED, AWAKE, CONSCIOUS, COOPERATIVE, A/OX4, BREATHING AT ROOM AIR, UNLABORED BREATHING, NO SIGNS OF RESPIRATORY DISTRESS, LAC #20G SL, AMBULATORY, WITH BEDSIDE COMMODE, DUE MEDS GIVEN, PAIN MED GIVEN, SIDE RAILS UP FOR SAFETY.
[2020-02-23 07:19] LABS: BASOPHILS # (AUTO) 0.1 /CMM (0.0-0.2); BASOPHILS % (AUTO) 0.8 % (0.0-2.0); EOSINOPHILS % (AUTO) 1.4 % (0.0-6.0); HEMATOCRIT 24 % (33-45); HEMOGLOBIN 7.9 g/dL (11.5-14.8); LYMPHOCYTES # (AUTO) 1.9 /CMM (0.8-4.8); LYMPHOCYTES % (AUTO) 10.2 % (20.0-44.0); MEAN CORPUSCULAR HGB CONC 33 g/dl (31.0-36.0); MEAN CORPUSCULAR VOLUME 95 fL (82-100); MONOCYTES # (AUTO) 2.5 /CMM (0.1-1.30); MONOCYTES % (AUTO) 13.8 % (2.0-12.0); NEUTROPHILS # (AUTO) 13.5 /CMM (1.8-8.9); NEUTROPHILS % (AUTO) 73.8 % (43.0-81.0); PLATELET COUNT (AUTO) 261 /CMM (150-450); RED BLOOD CELL COUNT(AUTO) 2.52 MIL/uL (4.0-5.2); WHITE BLOOD COUNT (AUTO) 18.3 K/uL (4.3-11.0)
[2020-02-23 07:47] LABS: ALBUMIN 1.6 g/dL (3.4-5.0); CALCIUM, SERUM 8.8 mg/dL (8.5-10.1); CREATININE 1.9 mg/dL (0.6-1.3); MAGNESIUM 2.9 mg/dL (1.8-2.4); PHOSPHORUS 3.1 mg/dL (2.5-4.9); POTASSIUM 3.7 mmol/L (3.5-5.1); TOTAL PROTEIN, SERUM 5.3 g/dL (6.4-8.2)
--- NOTE | 2020-02-23 07:51 | NUR ---
MS RN OPENING NOTE PATIENT IN BED RESTING COMFORTABLY. PATIENT IN NO ACUTE DISTRESS. NO SOB NOTED. PATIENT BREATHING IS EVEN AND UNLABORED. PATIENT SAFETY PRECAUTIONS IN PLACE. BED ALARM IS ON. HOB IS ELEVATED. PATIENT STATES NO PAIN AT THIS TIME. PATIENT BED IS LOCKED AND IN LOWEST POSITION. CALL LIGHT WITHIN REACH. WILL CONTINUE TO MONITOR.
[2020-02-23 08:18] VITALS: BP 106/53
[2020-02-23] MEDS: predniSONE 10 MG TABLET PO SCH (08:28)
[2020-02-23] MEDS: FLUTICASONE/VILANTEROL 1 EACH BLST.W.DEV IH SCH (08:29)
[2020-02-23] MEDS: ENOXAPARIN SODIUM 40 MG/0.4 ML DISP.SYRIN SQ SCH (08:30)
[2020-02-23] MEDS: PROPRANOLOL LA 60 MG CAP.SA.24H PO SCH (08:34)
[2020-02-23] MEDS: DOCUSATE SODIUM LIQ 100 MG/10 ML UDC PO SCH ×2 (08:37→17:00)
[2020-02-23] MEDS ORDERED: FUROSEMIDE 40 MG TABLET PO SCH (09:00)
[2020-02-23] MEDS: ALBUMIN 25% 25 GM in PREMIX 1 EA IV SCH ×2 (10:56→17:37)
--- NOTE | 2020-02-23 13:38 | NUR ---
MS RN NOTE PER CAMPAIGN ADVISOR VIVIEN, US GUIDED PARACENTESIS TO BE PERFORMED TOMORROW. PATIENT IS AWARE. PATIENT IN NO ACUTE DISTRESS. NO SOB NOTED. PATIENT BREATHING IS EVEN AND UNLABORED. CHARGE NURSE PORTILLO MADE AWARE.
--- NOTE | 2020-02-23 14:39 | NUR ---
MS RN NOTE INFORMED DR. ALTMAN THAT LAB FROM [facility] CALLED, AND LILIA REPORTED POSITIVE CDIFF RESULT. MADE AWARE. PER DR. AGAPITO CRAWLEY ORDER FOR VANCOMYCIN 250 MG PO Q6HR.
[2020-02-23 16:27] VITALS: BP 100/60
--- NOTE | 2020-02-23 17:33 | NUR ---
MS RN NOTE PATIENT REFUSED 1700 DOSE COLACE. EDUCATED RISKS VS BENEFITS. PATIENT CONTINUED TO REFUSE.
[2020-02-23] MEDS: VANCOMYCIN HCL 125 MG/2.5 ML ORAL.SUSP PO SCH ×2 (17:37→23:33)
--- NOTE | 2020-02-23 17:57 | NUR ---
MS RN NOTE DELIVERED PATIENTS HOME MEDICATIONS TO OUR PHARMACY. RECEIPT IN CHART.
--- NOTE | 2020-02-23 18:26 | NUR ---
MS RN NOTE UNABLE TO OBTAIN URINE SAMPLE DURING MY SHIFT. EVERY TIME PATIENT HAS THE URGE TO URINATE SHE ALSO STATES SHE HAD A BOWEL MOVEMENT. CAN NOT OBTAIN DUE TO URINE AND STOOL MIXING. PATIENT STATES " I WILL TRY AGAIN LATER AND SEE WHEN I NEED TO URINATE AND HOPEFULLY I DONT HAVE TO POOP EITHER". WILL ENDORSE TO NEXT SHIFT TO MONITOR FOR URINE AND OBTAIN URINE SAMPLE.
--- NOTE | 2020-02-23 18:38 | NUR ---
MS RN CLOSING NOTE PATIENT IN BED RESTING COMFORTABLY. PATIENT IN NO ACUTE DISTRESS. NO SOB NOTED. PATIENT BREATHING IS EVEN AND UNLABORED. PATIENT SAFETY PRECAUTIONS IN PLACE. BED ALARM IS ON. HOB IS ELEVATED. PATIENT KEPT CLEAN, DRY, AND COMFORTABLE THROUGHOUT SHIFT. NEEDS AND CONCERNS ADDRESSED. PATIENT STATES NO PAIN AT THIS TIME. PATIENT BED IS LOCKED AND IN LOWEST POSITION. CALL LIGHT WITHIN REACH. WILL ENDORSE CARE TO PM SHIFT FOR LORE.
--- NOTE | 2020-02-23 19:30 | NUR ---
MS RN NOTES PATIENT IN BED, AWAKE, ALERT AND ORIENTED X 4. BREATHING EVEN AND UNLABORED ON ROOM AIR. SHOWS NO SIGNS OF ACUTE RESPIRATORY DISTRESS, NO ACUTE PAIN. IV ON LAC 20G ITS CLEAN DRY AND INTACT. SHOWS NO SIGNS OF INFILTRATION, NO REDNESS. SAFETY PRECAUTIONS IN PLACE. BED IN LOWEST POSITION, LOCKED, AND CALL LIGHT KEPT WITHIN REACH. WILL CONTINUE TO MONITOR.
--- NOTE | 2020-02-23 19:47 | NUR ---
MS RN NOTES PATIENT COMPLAINING OF PAIN. GIVEN PRN EMILY AT 1947, VITAL SIGNS WNL. WILL CONTINUE TO MONITOR.
[2020-02-23 20:00] VITALS: BP 103/65
--- NOTE | 2020-02-23 20:48 | NUR ---
MS RN NOTES PATIENT COMPLAINING OF ITCHY AND PAIN ON SKIN. RECEIVED ORDER FOR MD FOR BENADRYL PRN. ORDERED FOLLOWED THROUGH. GIVEN AT MEDICATION AT 2047. WILL CONTINUE TO MONITOR.
[2020-02-23] MEDS ORDERED: diphenhydrAMINE HCL 25 MG CAPSULE PO PRN (21:00)
[2020-02-24] MEDS: ALBUMIN 25% 25 GM in PREMIX 1 EA IV SCH (01:04)
[2020-02-24] MEDS: HYDROCODONE/APAP 5/325MG TABLET PO PRN ×2 (01:10→08:26)
[2020-02-24] MEDS: VANCOMYCIN HCL 125 MG/2.5 ML ORAL.SUSP PO SCH ×3 (06:08→17:21)
--- NOTE | 2020-02-24 06:46 | NUR ---
MS RN NOTES PATIENT IN BED, ASLEEP, ALERT AND ORIENTED X 4. BREATHING EVEN AND UNLABORED ON ROOM AIR. SHOWS NO SIGNS OF ACUTE RESPIRATORY DISTRESS, NO ACUTE PAIN. IV ON LAC 20G ITS CLEAN DRY AND INTACT. SHOWS NO SIGNS OF INFILTRATION, NO REDNESS. ALL DUE MEDICATIONS GIVEN. SAFETY PRECAUTIONS IN PLACE. BED IN LOWEST POSITION, LOCKED, AND CALL LIGHT KEPT WITHIN REACH. WILL ENDORSE TO ONCOMING NURSE.
[2020-02-24 06:52] LABS: ALBUMIN 2.5 g/dL (3.4-5.0); BILIRUBIN,TOTAL 1.9 mg/dL (0.2-1.0); CALCIUM, SERUM 8.6 mg/dL (8.5-10.1); CREATININE 2.2 mg/dL (0.6-1.3); MAGNESIUM 3.1 mg/dL (1.8-2.4); PHOSPHORUS 3.6 mg/dL (2.5-4.9); POTASSIUM 4.3 mmol/L (3.5-5.1); TOTAL PROTEIN, SERUM 5.3 g/dL (6.4-8.2)
--- NOTE | 2020-02-24 08:00 | NUR ---
MS RN NOTES PATIENT IN BED RESTING NO SOB OR ACUTE DISTRESS NOTED. PATIENT ALERT, ORIENTED X3. PERIPHERAL IV INTACT PATENT. SAFETY MEASURES IN PLACE. WILL CONTINUE TO MONITOR.
[2020-02-24] MEDS: ENOXAPARIN SODIUM 40 MG/0.4 ML DISP.SYRIN SQ SCH (08:27)
[2020-02-24] MEDS: DOCUSATE SODIUM LIQ 100 MG/10 ML UDC PO SCH ×2 (08:27→17:21)
[2020-02-24] MEDS: predniSONE 10 MG TABLET PO SCH (08:27)
[2020-02-24 08:30] LABS: BASOPHILS # (AUTO) 0.1 /CMM (0.0-0.2); EOSINOPHILS % (AUTO) 0.1 % (0.0-6.0); HEMATOCRIT 22 % (33-45); HEMOGLOBIN 7.2 g/dL (11.5-14.8); LYMPHOCYTES # (AUTO) 1.4 /CMM (0.8-4.8); LYMPHOCYTES % (AUTO) 9.6 % (20.0-44.0); MEAN CORPUSCULAR HGB CONC 32 g/dl (31.0-36.0); MEAN CORPUSCULAR VOLUME 95 fL (82-100); MONOCYTES # (AUTO) 1.2 /CMM (0.1-1.30); MONOCYTES % (AUTO) 8.3 % (2.0-12.0); NEUTROPHILS # (AUTO) 12.1 /CMM (1.8-8.9); PLATELET COUNT (AUTO) 250 /CMM (150-450); RED BLOOD CELL COUNT(AUTO) 2.34 MIL/uL (4.0-5.2); WHITE BLOOD COUNT (AUTO) 14.9 K/uL (4.3-11.0)
[2020-02-24] MEDS: FLUTICASONE/VILANTEROL 1 EACH BLST.W.DEV IH SCH (08:30)
[2020-02-24 08:51] VITALS: BP 116/69
[2020-02-24] MEDS: PROPRANOLOL LA 60 MG CAP.SA.24H PO SCH (09:00)
[2020-02-24 16:58] VITALS: BP 118/68
--- NOTE | 2020-02-24 18:43 | NUR ---
MS RN NOTES PATIENT IN BED AWAKE IN STABLE CONDITION. NO ACUTE CHANGES NOTED DURING AM SHIFT. ALL DUE MEDICATIONS ADMINISTERED. ALL NEEDS MET. WILL ENDORSE CARE TO PM SHIFT.
--- NOTE | 2020-02-24 19:28 | NUR ---
MS RN OPENING NOTES PATIENT RECEIVED RESTING IN BED COMFORTABLY; A/OX3-4, SOMETIMES CONFUSED UPON WAKING UP; BREATHING EVEN AND UNLABORED; NO SOB NOTED; L AC #20 H/L, INTACT AND PATENT, FLUSHING WELL; NO S/S OF REDNESS OR INFILTRATION NOTED; ISOLATION PRECAUTIONS MAINTAINED; SAFETY PRECAUTIONS IMPLEMENTED; BED LOCKED IN LOW POSITION; SIDE RAILSX2; CALL LIGHT WITHIN REACH; WILL CONT TO MONITOR
[2020-02-24 20:00] VITALS: BP 114/61
[2020-02-25] MEDS: VANCOMYCIN HCL 125 MG/2.5 ML ORAL.SUSP PO SCH ×5 (00:01→23:29)
[2020-02-25] MEDS: HYDROCODONE/APAP 5/325MG TABLET PO PRN ×4 (04:00→20:45)
--- NOTE | 2020-02-25 04:00 | NUR ---
MS RN NOTES PATIENT COMPLAINT OF SHARP ABDOMINAL PAIN RATING 7/10, PATIENT ABLE TO MAKE NEEDS KNOWN; A/OX3-4, VITALS STABLE; NORCO ADMINISTERED PER MD ORDER; WILL CONT TO MONITOR
--- NOTE | 2020-02-25 06:43 | NUR ---
MS RN CLOSING NOTES PATIENT RESTING IN BED COMFORTABLY; A/OX3-4, SOMETIMES FORGETFUL/CONFUSED; BREATHING EVEN AND UNLABORED; NO SOB NOTED; TOLERATING ROOM AIR WELL; PATIENT AMBULATORY WITH STEADY GAIT; L AC # 20 H/L INTACT AND PATENT, FLUSHING WELL; SPOKE WITH DR. COLIN REGARDING PATIENT'S HEMOGLOBIN LEVEL; SINCE ADMISSION, HGB TRENDING DOWN, CURRENT LAB VALUE 7.2, AWARE; OKAY TO HOLD CHEMICAL PROPHYLAXIS UNTIL LEVEL IS STABLIZED; WILL INFORM DAY SHIFT; PATIENT ABLE TO MAKE NEEDS KNOWN; ALL NEEDS RENDERED; ISOLATION PRECAUTIONS MAINTAINED; SAFETY PRECAUTIONS IMPLEMENTED; BED LOCKED IN LOW POSITION; SIDE RAILSX2; CALL LIGHT WITHIN REACH; WILL ENDORSE LORE TO ONCOMING SHIFT
[2020-02-25 06:57] LABS: BASOPHILS # (AUTO) 0.1 /CMM (0.0-0.2); BASOPHILS % (AUTO) 0.3 % (0.0-2.0); EOSINOPHILS % (AUTO) 0.3 % (0.0-6.0); HEMATOCRIT 23 % (33-45); HEMOGLOBIN 7.3 g/dL (11.5-14.8); LYMPHOCYTES # (AUTO) 1.8 /CMM (0.8-4.8); LYMPHOCYTES % (AUTO) 11.8 % (20.0-44.0); MEAN CORPUSCULAR HGB CONC 32 g/dl (31.0-36.0); MEAN CORPUSCULAR VOLUME 95 fL (82-100); MONOCYTES # (AUTO) 2.2 /CMM (0.1-1.30); MONOCYTES % (AUTO) 14.1 % (2.0-12.0); NEUTROPHILS # (AUTO) 11.5 /CMM (1.8-8.9); NEUTROPHILS % (AUTO) 73.5 % (43.0-81.0); PLATELET COUNT (AUTO) 275 /CMM (150-450); RED BLOOD CELL COUNT(AUTO) 2.37 MIL/uL (4.0-5.2); WHITE BLOOD COUNT (AUTO) 15.6 K/uL (4.3-11.0)
[2020-02-25 07:00] LABS: ALBUMIN 2.4 g/dL (3.4-5.0); BILIRUBIN,TOTAL 1.9 mg/dL (0.2-1.0); CALCIUM, SERUM 8.9 mg/dL (8.5-10.1); CREATININE 2.1 mg/dL (0.6-1.3); POTASSIUM 4.2 mmol/L (3.5-5.1); TOTAL PROTEIN, SERUM 5.4 g/dL (6.4-8.2)
--- NOTE | 2020-02-25 07:30 | NUR ---
MS/RN OPENING NOTES Patient resting in bed, A&O x 3-4, forgetful, will frequently reorient throughout shift. Complaints of rectal pain of 7/10 noted, will give pain medication as soon as its due. Breathing even and non-labored on RA, no SOB noted. No respiratory or cardiac distress noted. IV access on L AC #20 gauge, pulled out upon assessment, placed clean dry dressing and applied pressure to prevent bleeding. No infection, infiltration noted on site. Sensation from all peripheral extremities intact. Fall precautions maintained. Contact isolation maintained. Instructed pt to use call light when in need of assistance. Will continue with current medical management.
[2020-02-25 08:00] VITALS: BP 104/59
[2020-02-25] MEDS: PROPRANOLOL LA 60 MG CAP.SA.24H PO SCH (08:27)
[2020-02-25] MEDS: predniSONE 10 MG TABLET PO SCH (08:28)
[2020-02-25] MEDS: DOCUSATE SODIUM LIQ 100 MG/10 ML UDC PO SCH ×3 (08:28→17:00)
[2020-02-25] MEDS: FLUTICASONE/VILANTEROL 1 EACH BLST.W.DEV IH SCH (08:32)
[2020-02-25] MEDS: ENOXAPARIN SODIUM 40 MG/0.4 ML DISP.SYRIN SQ SCH (08:33)
--- NOTE | 2020-02-25 16:40 | NUR ---
MS/RN NOTE Collected urine sample, sent to lab for urinalysis.
[2020-02-25 18:20] LABS: CREATININE, URINE 155.1 MG/DL (30.0-125.0); URINE SODIUM, RANDOM < 5 mmol/l (40-220); URINE TOTAL PROTEIN 20.3 mg/dL (0-11.9)
[2020-02-25 18:22] LABS: APPEARANCE,URINE CLEAR (CLEAR); BILIRUBIN,URINE NEGATIVE (NEGATIVE); BLOOD, URINE SMALL Ery/uL (NEGATIVE); COLOR,URINE YELLOW (YELLOW); KETONES,URINE NEGATIVE (NEGATIVE); LEUKOCYTE ESTERASE ,URINE NEGATIVE (NEGATIVE); NITRITE, URINE NEGATIVE (NEGATIVE); PROTEIN,URINE NEGATIVE (NEGATIVE); UGLUCOSE NEGATIVE (NEGATIVE); UROBILINOGEN,URINE 0.2 EU/dL (0.2)
[2020-02-25 18:35] LABS: EOSINOPHIL,URINE None Seen
--- NOTE | 2020-02-25 18:50 | NUR ---
MS/RN CLOSING NOTES Patient lying in bed, A&O x 3-4, forgetful, frequently reoriented throughout shift. Patient remains stable, VSS, afebrile. Denies any pain and discomfort at this time, last norco given 1535. Breathing even and non-labored on RA, no SOB noted. No respiratory or cardiac distress noted. IV access on R wrist #22, patent and intact, and flushing well. No infection, infiltration noted on site. Sensation from all peripheral extremities remain intact. Bed locked to its lowest position, side rails x 2 up, call light within reach. Instructed pt to use call light when in need of assistance. Contact isolation maintained. Will endorse to chuck boner nurse.
--- NOTE | 2020-02-25 19:50 | NUR ---
MS RN OPENING NOTES PATIENT RECEIVED RESTING IN BED COMFORTABLY, A/OX3-4, PATIENT IS CONFUSED/FORGETFUL AT TIMES; BREATHING EVEN AND UNLABORED; NO SOB NOTED; TOLERATING ROOM AIR WELL; PER AM SHIFT, PATIENT PULLED OUT PREVIOUS IV SITE; L WRIST #20 H/L INTACT AND PATENT, WRAPPED IN KERLIX; SAFETY PRECAUTIONS IMPLEMENTED; BED LOCKED IN LOW POSITION; SIDE RAILSX2; ISOLATION PRECAUTIONS MAINTAINED; CALL LIGHT WITHIN REACH; WILL CONT TO MONITOR
[2020-02-25 20:00] VITALS: BP 122/73
--- NOTE | 2020-02-25 20:45 | NUR ---
MS RN NOTES PATIENT COMPLAINT OF 01/02 ABDOMEN/RECTAL PAIN; REQUESTING NORCO PO; VITALS STABLE; PATIENT ABLE TO MAKE NEEDS KNOWN; NORCO 5/325MG PO ADMINISTERED PER MD ORDER; WILL CONT TO MONITOR
[2020-02-26] MEDS: VANCOMYCIN HCL 125 MG/2.5 ML ORAL.SUSP PO SCH ×3 (05:16→17:10)
[2020-02-26 06:38] LABS: CALCIUM, SERUM 8.9 mg/dL (8.5-10.1); CREATININE 1.5 mg/dL (0.6-1.3); POTASSIUM 4.2 mmol/L (3.5-5.1)
--- NOTE | 2020-02-26 06:55 | NUR ---
MS RN CLOSING NOTES PATIENT RESTING IN BED COMFORTABLY; A/OX3-4, FORGETFUL/CONFUSED AT TIMES; BREATHING EVEN AND UNLABORED; NO SOB NOTED; TOLERATING ROOM AIR WELL; ISOLATION PRECAUTIONS MAINTAINED; L WRIST #20 INTACT AND PATENT; PATIENT ABLE TO MAKE NEEDS KNOWN; ALL NEEDS RENDERED; SAFETY PRECAUTIONS IMPLEMENTED; BED LOCKED IN LOWEST POSITION; SIDE RAILSX2; CALL LIGHT WITHIN EASY REACH; WILL ENDORSE LORE TO ONCOMING SHIFT
[2020-02-26 08:00] VITALS: BP 110/58
--- NOTE | 2020-02-26 08:00 | NUR ---
MS/RN OPENING NOTES Patient resting in bed, A&O x 4, forgetful, will frequently reorient throughout shift. Complaints of rectal pain of 7/10 noted, will give pain medication as soon as its due. Breathing even and non-labored on RA, no SOB noted. No respiratory or cardiac distress noted. IV access on L AC #20 gauge, intact. No infection, infiltration noted on site. Sensation from all peripheral extremities intact. Fall precautions maintained. Contact isolation for C.diff maintained. Pt teaching provided regarding universal/contact precautions/good hygiene. Pt verbalized understanding of instructions given. Instructed pt to use call light when in need of assistance. Will continue with current medical management.
[2020-02-26] MEDS: FLUTICASONE/VILANTEROL 1 EACH BLST.W.DEV IH SCH (08:55)
[2020-02-26] MEDS: ENOXAPARIN SODIUM 40 MG/0.4 ML DISP.SYRIN SQ SCH (08:56)
[2020-02-26] MEDS: DOCUSATE SODIUM LIQ 100 MG/10 ML UDC PO SCH ×2 (09:00→17:00)
[2020-02-26] MEDS ORDERED: PROPRANOLOL LA 60 MG CAP.SA.24H PO SCH (09:00)
[2020-02-26] MEDS: predniSONE 10 MG TABLET PO SCH (09:02)
[2020-02-26 09:16] VITALS: BP 110/58
[2020-02-26 09:51] LABS: FERRITIN 207 ng/mL (8-388)
[2020-02-26 10:04] LABS: IRON, SERUM 32 ug/dl (50-175); TOTAL IRON BINDING CAPACITY 506 ug/dl (250-450)
[2020-02-26] MEDS ORDERED: VANC125C11 PO (12:47)
--- NOTE | 2020-02-26 15:21 | NUR ---
STARTED TO TRANSFUSE FIRST UNIT PRBC AFTER VERIFYING WITH CO-RN WITNESS. BP 101/52 HR 56 RR 18 T 98.2 O2 SAT 97% ROOM AIR. PT DENIES ANY PAIN OR DISTRESS.
--- NOTE | 2020-02-26 15:29 | NUR ---
ATTEMPTED TO DOCUMENT V/S IN THE TRANSFUSION SPREADSHEET BUT TO NO AVAIL AND THIS MESSAGE APPEARED SEVERAL TIMES: UNABLE TO RETRIEVE ASSESSMENT VS TRANSFUSION KEEPS APPEARING ON THE TRANSFUSION SPREADSHEET.CHECKED WITH BLOOD BANK WELL WHO STATED THAT EVERYTHING IS CLEAR AND OK IN THEIR END. LEFT MESSAGE TO SHIRLEY (HELP DESK).
--- NOTE | 2020-02-26 15:35 | NUR ---
WITH ONGOING BLOOD TRANSFUSION FIRST UNIT PRBC RECHECKED V/S WITH STABLE V/S BP 110/60 HR 65 RR 18 T 97.6 PA 97% ROOM AIR.PT DENIES ANY PAIN OR DISTRESS.WILL CONTINUE TO MONITOR FOR ANY BLOOD TRANSFUSION REACTIONS.
--- NOTE | 2020-02-26 18:36 | NUR ---
PT WENT TO THE TOILET 3X DELAYING THE BLOOD TRANSFUSION INFUSION.
--- NOTE | 2020-02-26 19:20 | NUR ---
COMPLETED BLOOD TRANSFUSION OF 1 UNIT PRBC WITH STABLE V/S. BP 102/61 HR 57 RR 18 T 97.6 O2 SAT 97% ON ROOM AIR. PT DENIES ANY PAIN OR DISTRESS. PT LYING IN BED PULLING DRESSINGS IN HER ARMS.STOPPED PT AND INSTRUCTED NOT TO PULL PAPER/PLASTIC TAPES FROM HER SKIN SINCE SHE GOT VERY FRAGILE SKIN THAT IS PRONE TO SKIN TEARS. PT IS NON COMPLIANT AND CONTINUES TO PULL PAPER TAPE OUT OF HER SKIN AFTER A FEW MINUTES.ENDORSED TO RETAIL VISUAL MERCHANDISER TO DISCHARGE THE PT.
--- NOTE | 2020-02-26 19:45 | NUR ---
MS RN NOTES PATIENT IN BED, AWAKE, ALERT AND ORIENTED X 4. BREATHING EVEN AND UNLABORED ON ROOM AIR. SHOWS NO SIGNS OF ACUTE RESPIRATORY DISTRESS. NO ACUTE PAIN. SHOWS NO SIGNS OF ACUTE RESPIRATORY DISTRESS, NO ACUTE PAIN. IV ON L WRIST 20G S/P BLOOD TRANSFUSION, NO S/S OF REACTION AND VITALS WNL. PICTURES OF WOUND TAKEN AND DOCUMENTED. PT REFUSED TO HAVE BANDAGES REMOVED FOR PICTURES. SAFETY PRECAUTIONS IN PLACE. BED IN LOWEST POSITION, LOCKED, AND CALL LIGHT KEPT WITHIN REACH. WILL CONTINUE TO MONITOR.
--- NOTE | 2020-02-26 20:20 | NUR ---
MS RN NOTES PATIENT LEFT FLOOR AT WHEELCHAIR. FAMILY MEMBER NBA PICKING UP. PT DID NOT WANT TO CHANGE OUT OF HOSPITAL GOWN. DID NOT WANT TAPE REMOVED OFF SKIN. IV OUT WITH CATHETER INTACT. BELONGINGS GIVEN BACK WITH DISCHARGE PAPERWORK. WITH SAFETY PRECAUTIONS IN PLACE.
== END 2020-02-26 20:20 | disposition home or self-care (01) | DRG 432 ==
LOC: ER 07:13 → TELE 12:38 → MED 22:37
PROC: 0W9G3ZZ Drainage of Peritoneal Cavity, Percutaneous Approach (ICD-10-PCS; principal; 2020-02-24)
PROC: 30233N1 Transfusion of Nonautologous Red Blood Cells into Peripheral Vein, Percutaneous Approach (ICD-10-PCS; 2020-02-26)
DX: K74.60 Unspecified cirrhosis of liver (principal); I21.A1 Myocardial infarction type 2; N17.0 Acute kidney failure with tubular necrosis; I50.32 Chronic diastolic (congestive) heart failure; K76.6 Portal hypertension; R18.8 Other ascites; E87.1 Hypo-osmolality and hyponatremia; J90 Pleural effusion, not elsewhere classified; E44.0 Moderate protein-calorie malnutrition; D68.9 Coagulation defect, unspecified; A04.72 Enterocolitis due to Clostridium difficile, not specified as recurrent; J45.909 Unspecified asthma, uncomplicated; Z88.0 Allergy status to penicillin; Z90.49 Acquired absence of other specified parts of digestive tract; Z87.01 Personal history of pneumonia (recurrent); Z79.899 Other long term (current) drug therapy; Z79.52 Long term (current) use of systemic steroids; D50.9 Iron deficiency anemia, unspecified; R19.7 Diarrhea, unspecified; E86.1 Hypovolemia; K44.9 Diaphragmatic hernia without obstruction or gangrene; K59.00 Constipation, unspecified; N83.202 Unspecified ovarian cyst, left side
CPT/HCPCS: 36415; 49083; 71045-TC; 76942-TC; 80048-TC; 80053-TC; 80076-TC; 81000-TC; 82140-TC; 82570-TC; 82728-TC; 83540-TC; 83605-TC; 83690-TC; 83735-TC; 83880; 84100-TC; 84155-TC; 84300-TC; 84484-TC; 85025-TC; 85730-TC; 86850-TC; 86921-TC; 87040-TC; 87045-TC; 87070-TC; 87081-TC; 89051-TC; 93307-TC; 97116-TC; 97530-TC; A4216; C9803-CS; G0378; J1650; J1940; J1956; J3370; J7050; J7060; P9016-BL; P9047; Q0163